=== PATIENT | male | born 1970 | race Caucasian/White ===

== ENCOUNTER 2018-02-05 19:56 | Emergency (ER) | payer MEDICAID, SELFPAY ==
[2018-02-05 19:57] VITALS: BP 159/87; PULSE 82; RESP 20; TEMP 36.1; O2SAT 94; BMI 36.3
[2018-02-05 20:07] VITALS: BP 184/90; PULSE 81; RESP 18; O2SAT 96
[2018-02-05] MEDS: DiphenhydrAMINE 50 MG/ML Syringe IV (20:40)
[2018-02-05] MEDS: Morphine 2 MG/ML Syringe IV (20:41)
[2018-02-05] MEDS: MethylPREDNISolone 125 MG/2 ML Vial IV (20:41)
[2018-02-05] MEDS: 0.9% Normal Saline 1,000 ML 999 ML IV (20:41)
[2018-02-05 21:00] VITALS: BP 151/72; PULSE 95; RESP 16; O2SAT 97
[2018-02-05 22:00] VITALS: BP 161/74; PULSE 84; RESP 17; O2SAT 96
--- NOTE | 2018-02-05 22:12 | ED.DEP ---
ED Disposition - Plan for ED Patient: Chief Complaint: Allergic Reaction Instructions: ED Bite Sting Insect Gen Allergic React Prescriptions: Epinephrine [Epi Pen] 0.3 mg IM X1 #2 syringe Referrals: Andrew Zapata DO [Primary Care Provider] - 3-5 Days
--- NOTE | 2018-02-05 22:39 | ED.VISSUMM ---
- ER Visit Summary Date of Service: 02/05/18 Chief Complaint: [Allergic reaction] History of Present Illness: The patient is a 47 M [who presents the emergency department with an allergic reaction. He was stung by a bee approximately 20 minutes ago on the left hand. 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 His EpiPen was . He feels nauseated and short of breath and his tongue feels swollen. No rash or itching] Physical Examination: [] Pressure elevated WN WD NAD PERRL EOMI MMM NECK supple and nontender, no masses RRR no murmur rub or gallop, no peripheral edema, symmetric radial pulses CTAB no respiratory distress ABDOMEN is soft mild diffuse tenderness normal bowel sounds, no distension, no rebound or guarding SKIN bee sting left hand with mild surrounding erythema Alert and Oriented x3, CN II-XII in tact, no motor or sensory deficits, gait normal No lymphadenopathy Test Results: [] Emergency Department Course and Treatment: [She was given epinephrine Solu-Medrol and Benadryl. His symptoms resolved. He was observed for 2 hours. He was given a prescription for a refill on his EpiPen. He was given precautions for which to return.] Treatment Plan: [] Disposition: [Discharge] Impression: [Anaphylaxis] This note was generated with [employer] dictation software. It may contain incorrect words, spelling, and punctuation that were not noted in review of the chart prior to signing ED Disposition - Plan for ED Patient: Chief Complaint: Allergic Reaction Instructions: ED Bite Sting Insect Gen Allergic React Prescriptions: Epinephrine [Epi Pen] 0.3 mg IM X1 #2 syringe Referrals: Andrew Zapata DO [Primary Care Provider] - 3-5 Days
[2018-02-05 23:00] VITALS: BP 137/78; PULSE 76; RESP 14; O2SAT 95
--- NOTE | 2018-02-06 00:51 | ED.RN ---
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
[2018-02-06 01:44] VITALS: RESP 16
[2018-02-06 02:46] VITALS: RESP 16
[2018-02-06 03:03] VITALS: BP 131/76; PULSE 70; RESP 13; O2SAT 96
== END 2018-02-06 03:07 | disposition home or self-care (01) ==
LOC: ED 20:36
PROVIDERS: Emergency Provider Emergency Medicine; Family Provider Student in an Organized Health Care Education/Training Program; PCP Student in an Organized Health Care Education/Training Program
DX: T63.441A Toxic effect of venom of bees, accidental (unintentional), initial encounter (principal); T78.2XXA Anaphylactic shock, unspecified, initial encounter; Z72.0 Tobacco use
CPT/HCPCS: 96361; 96372; 96374; 96375; 99282; J7030; A4216

== ENCOUNTER 2018-04-26 22:22 | Emergency (ER) | payer MEDICAID, SELFPAY ==
[2018-04-26 22:23] VITALS: BP 158/82; PULSE 83; RESP 18; TEMP 36.9; O2SAT 95; BMI 36.0
[2018-04-27] MEDS: DiphenhydrAMINE 50 MG/ML Syringe 25 MG IV (00:04)
[2018-04-27] MEDS: Ketorolac 30 MG/ML Syringe IV (00:05)
[2018-04-27] MEDS: 0.9% Normal Saline 1,000 ML 1000 ML IV (00:05)
[2018-04-27] MEDS: Metoclopramide 10 MG/2 ML Vial IV (00:06)
--- NOTE | 2018-04-27 00:57 | ED.VISSUMM ---
- ER Visit Summary Date of Service: 04/27/18 Chief Complaint: [Take] History of Present Illness: The patient is a 47 M [presents the emergency department with a headache ?2 days. Patient states that he awoke with a headache 2 days ago. Patient states that he has a history of migraines and this feels similar. He complains of photophobia and nausea with 2 episodes of vomiting. Patient denies any falls or head injuries. He does complain of some pain in his right neck and right shoulder. Patient denies any recent illness or fever. Patient denies carbon monoxide exposures. He gets similar headaches every couple weeks.] Physical Examination: [HEENT-PERRLA, EOMI. Cranial nerves II through XII grossly intact. TMs clear. Mucous membranes moist. No adenopathy. She has mild tenderness over the right cervical paraspinal musculature into the right trapezius. Cardiovascular-regular rate and rhythm without murmur or ectopy Lungs-clear to auscultation, chest wall stable without crepitus or subcu emphysema Abdomen-normoactive bowel sounds, soft, nontender, no rebound or rigidity, no peritoneal signs. Neuro bfxb-qbeezl-mojb and heel ruvalcaba testing within normal limits, negative Romberg, negative pronator, fundi benign Extremities-intact ?4, normal range of motion, normal pulses, atraumatic] Test Results: [None indicated] Emergency Department Course and Treatment: Patient was given a liter normal same fluid bolus. Patient was given Reglan 10 mg IV, Benadryl 25 mg IV, and Toradol 30 mill grams IV. Patient's headache resolved. [] Treatment Plan: [Patient to follow-up with primary care physician in 3-5 days] Disposition: [Discharged home stable condition] Impression: [Migrainous cephalgia-resolved] This note was generated with [employer] dictation software. It may contain incorrect words, spelling, and punctuation that were not noted in review of the chart prior to signing ED Disposition - Plan for ED Patient: Chief Complaint: Headache Referrals: Andrew Zapata DO [Primary Care Provider] -
--- NOTE | 2018-04-27 01:00 | ED.DEP ---
ED Disposition - Plan for ED Patient: Chief Complaint: Headache Instructions: ED Headache Migraine Referrals: Andrew Zapata DO [Primary Care Provider] - 3-5 Days
[2018-04-27 01:16] VITALS: PULSE 80; RESP 18; O2SAT 98
== END 2018-04-27 01:19 | disposition home or self-care (01) ==
PROVIDERS: Emergency Provider Emergency Medicine; Family Provider Student in an Organized Health Care Education/Training Program; PCP Student in an Organized Health Care Education/Training Program
DX: G43.909 Migraine, unspecified, not intractable, without status migrainosus (principal); I10 Essential (primary) hypertension; Z72.0 Tobacco use; Z79.899 Other long term (current) drug therapy
CPT/HCPCS: 96361; 96374; 96375; 99283; J7030; A4216

== ENCOUNTER 2018-11-25 04:46 | Emergency (ER) | payer OTHER, SELFPAY ==
[2018-11-25 04:47] VITALS: BP 178/106; PULSE 106; RESP 18; TEMP 36.8; O2SAT 98; BMI 43.9
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
--- NOTE | 2018-11-25 05:00 | ED.DEP ---
ED Disposition - Plan for ED Patient: Disposition: Home or Assisted Living Instructions: ED Laceration Facial Skin Glue Referrals: Andrew Zapata DO [Primary Care Provider] - As Needed Additional Instructions: Do not remove the glue or the Steri-Strips for 1 week.
== END 2018-11-25 05:11 | disposition home or self-care (01) ==
LOC: ED 05:08
PROVIDERS: Emergency Provider Emergency Medicine; Family Provider Student in an Organized Health Care Education/Training Program; PCP Student in an Organized Health Care Education/Training Program
DX: S01.81XA Laceration without foreign body of other part of head, initial encounter (principal); W50.0XXA Accidental hit or strike by another person, initial encounter; Y93.83 Activity, rough housing and horseplay; Y92.9 Unspecified place or not applicable; Y99.9 Unspecified external cause status; K21.9 Gastro-esophageal reflux disease without esophagitis; R05 Cough; Z79.899 Other long term (current) drug therapy
CPT/HCPCS: 12011; 99282

== ENCOUNTER 2019-01-27 03:38 | Observation (INO) | payer OTHER, SELFPAY ==
[2019-01-27] VITALS (9 sets, daily range): BP systolic 126–179; BP diastolic 72–94; PULSE 68–114; RESP 16–20; TEMP 36.4–37.1; O2SAT 91–98; BMI 36.1; BMI 35.1
--- NOTE | 2019-01-27 03:47 | CT_ITS ---
STUDY: CT SOFT TISSUE NECK WITHOUT CONTRAST REASON FOR EXAM: Male, 48 years old. Sore throat since 7:00 PM last night, elevated WBCs, question abscess of soft palate. RADIATION DOSAGE (If Supplied By Facility): CTDIvol = ( 21.98 ) mGy, DLP = ( 625.77 ) mGycm TECHNIQUE: The patient was scanned in a multi-detector CT scanner. High resolution transaxial imaging was performed without the administration of intravenous contrast material. Sagittal and coronal images were reconstructed. Individualized dose optimization techniques were used for this CT. COMPARISON: None. FINDINGS: Normal bilateral parotid glands. Normal bilateral field inspector spaces. Normal bilateral parapharyngeal spaces. Normal bilateral carotid spaces. Normal bilateral sublingual and submandibular glands and spaces. Normal visualized nasopharynx. Normal retropharyngeal space. Normal perivertebral space. There is low attenuation prominence of the posterior soft palate, uvula, right palatine arch and right greater than left tonsil, the right side contains a small calcification. There is no focal low attenuation in the palatine tonsils to suggest abscess formation on noncontrast imaging. There is no airway narrowing or compromise. The visualized tongue, tongue base and oropharynx are normal. There are minimally enlarged lymph nodes of the neck, with preservation of normal griffin architecture, consistent with a reactive lymph hyperplasia. There is no demonstrated solid or cystic mass lesion. Normal epiglottis, bilateral vallecula and hypopharynx. The pre-epiglottic and paraglottic adipose spaces are normal. Normal visualized bilateral piriform sinuses, aryepiglottic folds, vocal cords, and arytenoid-cricoid articulations. Normal subglottic trachea. Normal bilateral lobes of the thyroid gland. Normal visualized pulmonary apices. Normal visualized paranasal sinuses. The bilateral mastoid air cells are clear. Age-appropriate visualized cervical spine. The mandible , bilateral zygomatic arches and bilateral temporomandibular joints are intact. CT/Soft Tissue Neck without Contr IMPRESSION: Edema and swelling involving the uvula, right palatine arch, right tonsil and posterior soft palate without a defined collection seen on noncontrast imaging. No pocket of air detected. Further detail could be obtained with contrast CT. No airway compromise or epiglottitis. Electronically Signed: Donna Sanchez MD at 4:48 EDT , Service support ,
--- NOTE | 2019-01-27 03:52 | ED.DCSUM_ITS ---
- ER Visit Summary Date of Service: 01/27/19 Chief Complaint: Sore throat History of Present Illness: The patient is a 48 M with sore throat that started earlier today. No fever chills, he does have an increased gag reflex. He has no shortness of breath. Physical Examination: Examination reveals fullness of the right soft palate and peritonsillar space. His airway is intact his voice is unremarkable he has no anterior lymphadenopathy. He has clear lungs. Emergency Department Course and Treatment: Patient is found to have swelling of the soft palate and uvula, there is no obvious abscess. I will call for admission. There is no surgical intervention at this time he is protecting his airway quite well. Clindamycin IV was given. Disposition: Admit stable condition Impression: Peritonsillar infection Soft tissue infection This note was generated with [employer] dictation software. It may contain incorrect words, spelling, and punctuation that were not noted in review of the chart prior to signing ED Disposition - Plan for ED Patient: Referrals: Andrew Zapata DO [Primary Care Provider] -
[2019-01-27] MEDS: Morphine 4 MG/ML Syringe IV (04:00)
[2019-01-27] MEDS: Ondansetron 4 MG/2 ML Vial IV (04:01)
[2019-01-27 04:16] LABS: Absolute Lymphocyte Count 1.21 X10^3/ul (0.83-4.51); Absolute Neutrophil Count 9.7 X10^3/uL (2.0-7.7); Basophil# 0.02 X10^3/uL; Basophil% 0.2 % (0-1); Eosinophil# 0.04 X10^3/uL; Eosinophils% 0.3 % (0-5); Hematocrit 42.8 % (40-54); Hemoglobin 14.5 g/dl (13.0-16.5); Lymphocyte # 1.21 X10^3/ul (4.0); Lymphocyte % 10.2 % (19-41); Mean Corp Hgb Conc 33.9 g/gl (32-36); Mean Corpuscular Hgb 28.5 pg (27.0-32.0); Mean Corpuscular Volume 84.1 fL (80-94); Mean Platelet Vol. 9.3 fl (6.2-12.0); Monocyte# 0.91 X10^3/uL; Monocyte% 7.7 % (0-10); Neutrophil # 9.68 X10^3/uL (2.7-7.7); Neutrophil % 81.5 % (47-70); POSITIVE COUNT NO; POSITIVE DIFFERENTIAL NO; POSITIVE MORPHOLOGY NO; Platelet Count 233 K/mm3 (150-450); RBC Distribution Width CV 13.6 % (11.6-14.6); RBC Distribution Width SD 41.8 fl (35.1-43.9); Red Blood Count 5.09 M/mm3 (4.6-6.2); White Blood Count 11.9 K/mm3 (4.4-11.0)
[2019-01-27 04:27] LABS: ALB/GLOB Ratio 0.8 RATIO (0.9-2.4); AST(SGOT) 27 U/L (15-37); Alanine Aminotransfer ALT/SGPT 66 U/L (16-61); Albumin, Serum 3.6 g/dL (3.2-5.0); Alkaline Phosphatase 131 U/L (45-117); Anion Gap 12 (5-15); BUN 20 mg/dL (7-18); BUN/Creat Ratio 20.5 RATIO (10-20); Calcium,Total 8.9 mg/dL (8.5-10.1); Chloride 106 mmol/L (98-107); Creatinine, Serum 0.98 mg/dL (0.70-1.30); EST Glomerular Filtration Rate 87 mL/min (>60); Est Glom Filt Rate - Afr Amer 106 mL/min (>60); Estimated Creatinine Clearance 83.19 ml/min; Globulin 4.3 g/dL (2.2-4.2); Glucose 114 mg/dL (74-106); Potassium 3.7 mmol/L (3.5-5.1); Protein, Total 7.9 g/dL (6.4-8.2); Sodium Level 142 mmol/L (136-145)
--- NOTE | 2019-01-27 04:57 | PCM.HP.STD ---
Problem List (1) Peritonsilar infection Status: Acute (2) Obesity (BMI 30-39.9) Status: Chronic (3) GERD (gastroesophageal reflux disease) Status: Chronic Qualifiers: Esophagitis presence: esophagitis presence not specified Qualified Code(s): K21.9 - Gastro-esophageal reflux disease without esophagitis (4) Anxiety and depression Status: Chronic History of Present Illness Date of Admission: 01/27/19 Chief Complaint: Sore throat The patient is a 48 y/o M w/ PMHx: GERD, Anxiety and Depression, Obesity, Former Tobacco use who presents to the [facility] ED on 01/27/19 with history of onset oral discomfort, sore throat which is worse with swallowing attempts, edema worsening over the last 36 hours without fever or chills and noted mild voice alteration. He denies any recent ill contacts. He notes thinking that he had strep throat. Work-up in the ED included T 90.7, heart rate 114, BP 179/94, respiratory rate 18, 93% on room air, CBC with WC 11.9, hemoglobin 14.5, platelet 233 with left shift, CMP notable for BUN 20, glucose 114, ALT 66, alk phos 131, CT soft tissue neck with edema and swelling involving the uvula, right pontine arch, right tonsil and posterior soft palate without defined collection, no pocket of air detected, no airway compromise or epiglottitis evident. In the ED patient administered Zofran, morphine and clindamycin. Past Medical History Past Medical History (Chronic Problems): Chronic Problems Obesity (BMI 30-39.9) (Chronic) GERD (gastroesophageal reflux disease) (Chronic) Anxiety and depression (Chronic) Hx of spinal fusion (Chronic) posterior lumbar spine Allergies venom-honey bee [bee venom (honey bee)] Allergy (Verified 04/26/18 22:24) Anaphylaxis INHALED STEROIDS Adverse Reaction (Uncoded 04/26/18 22:24) Other Home Medications: Ambulatory Orders Medication Instructions Recorded Epi Pen (for allergic rxn) 0.3 mg IM X1 #2 syringe 02/05/18 Omeprazole 20 mg PO DAILY 02/05/18 Surgical History: - - Lumbar back surgery, left inguinal hernia repair, right lymph node resection, right lower extremity history of trauma with surgical intervention. Psychiatric History: Anxiety, Depression Lives: Spouse/ Significant Other - Patient was a spouse with 5 children. Smoking Status: Former smoker - Patient quit cigarette tobacco usage approximately 4 to 5 months prior. Tobacco Use: Non-smoker Alcohol: Occasional Drugs: None - *Family History Maternal History Items: Diabetes, Heart Disease, Hypertension Paternal History Items: Cancer, Diabetes, Heart Disease, Hypertension Review of Systems Constitutional: Reports: Anorexia, Malaise, Fatigue. Denies: Chills, Fever, Weight Change HEENT: Reports: Difficulty Swallowing, Sore Throat. Denies: Head Aches, Sinus Congestion, Sinus Drainage Cardiovascular: Denies: Chest Pain, Palpitations Respiratory: Denies: Cough, Shortness of breath at rest, Sputum production Gastrointestinal: Denies: Abdominal Pain, Nausea, Vomiting Genitourinary: Denies: Dysuria Musculoskeletal: Denies: Joint Pain, Joint Tenderness Skin: Denies: Rash, Wounds Neurological: Denies: Numbness, Tingling, Focal weakness Psychiatric: Reports: Anxiety, Depression. Denies: Homicidal Ideations, Suicidal Ideations Hematologic/ Lymphatic: Denies: Easy Bruising, Easy Bleeding VTE Information - Inpt Only VTE Present on Admission: No VTE Mechan Device Prophylaxis: None VTE Pharm Prophylaxis ordered?: No Reason prophylaxis not ordered:: Treatment Not Indicated - Low risk, ambulation. Patient Problems: Active and Suspected Problems Peritonsilar infection (Acute) Subjective: Seated upright in ED bed, fatigued appearance, notes throat sore. Objective: Physical Examination: General: awake, alert, oriented x 3 and cooperative, seated upright in the ED bed in no apparent distress, notes ongoing sore throat. Skin: normal color, turgor, no icterus, cyanosis. HEENT: AT/NC, EOMI, PERRLA, dry MM, notable swelling of the soft palate and uvula, erythema, no exudates noted, airway intact, no carotid bruits or JVD noted. Lungs: CTA bilaterally, moderate effort, mild decrease BL bases, no rales, ronchi or wheezing. Heart: Regular rate and rhythm; no gallop, rub audible. Abdomen: soft, obese, NTTP, ND, normal BS, no HSM. Extremities: no cyanosis, clubbing, or edema. Neurological: patient awake, alert, oriented x 3; cognitive function intact; pupils equally reactive to light and accomodation; cranial nerves II-XII grossly normal, moving all 4 extremities, no focal deficits, strength moderately global decrease secondary to acute presentation. Psychiatric: affect appears fatigued, no acute evidence of depressive or anxiety feelings. - Physical Exam Vital Signs Temp Pulse Resp BP Pulse Ox 98.7 F 114 H 18 179/94 H 93 01/27/19 03:38 01/27/19 03:38 01/27/19 03:38 01/27/19 03:38 01/27/19 03:38 Oxygen Delivery Method Room Air Weight: 223 lb 8.78 oz Body Mass Index (BMI) 36.1 Laboratory Tests Past 24 Hrs 01/27/19 01/27/19 04:00 04:00 WBC 11.9 H RBC 5.09 Hgb 14.5 Hct 42.8 MCV 84.1 MCH 28.5 MCHC 33.9 RDW 13.6 RDW Differential 41.8 Plt Count 233 MPV 9.3 Immature Gran % (Auto) 0.100 Neut % (Auto) 81.5 H Lymph % (Auto) 10.2 L [place] % (Auto) 7.7 Eos % (Auto) 0.3 Baso % (Auto) 0.2 Absolute Neuts (auto) 9.7 H Absolute Lymphs (auto) 1.21 Total Counted Not Reportable Sodium 142 Potassium 3.7 Chloride 106 Carbon Dioxide 24.0 Anion Gap 12 BUN 20 H Creatinine 0.98 Estim Creat Clear Calc 83.19 Est GFR (MDRD) Af Amer 106 Est GFR (MDRD) Non-Af 87 BUN/Creatinine Ratio 20.5 H Glucose 114 H Calcium 8.9 Total Bilirubin 0.60 AST 27 ALT 66 H Alkaline Phosphatase 131 H Total Protein 7.9 Albumin 3.6 Globulin 4.3 H Albumin/Globulin Ratio 0.8 L Assessment/Plan All Active Problems Peritonsilar infection (Acute) The patient is a 48 y/o M w/ PMHx: GERD, Anxiety and Depression, Obesity, Former Tobacco use who presents to the [facility] ED on 01/27/19 with history of onset oral discomfort, sore throat which is worse with swallowing attempts, edema worsening over the last 36 hours without fever or chills. (1) Acute Peritonsillar Infection: Work-up in the ED included T 90.7, heart rate 114, BP 179/94, respiratory rate 18, 93% on room air, CBC with WC 11.9, hemoglobin 14.5, platelet 233 with left shift, CMP notable for BUN 20, glucose 114, ALT 66, alk phos 131, CT soft tissue neck with edema and swelling involving the uvula, right pontine arch, right tonsil and posterior soft palate without defined collection, no pocket of air detected, no airway compromise or epiglottitis evident. Will admit to MedSurg, maintain on IV Unasyn, administered Decadron 4 mg IV x1, pending ENT evaluation, maintain n.p.o. status, continue PPI. (2) Obesity: Weight loss and lifestyle changes encouraged. (3) History of tobacco use: Encouraged continued tobacco cessation. (4) Anxiety and depression: Not on regimen, defer to outpatient. (5) GERD: PPI. (6) DVT prophylaxis: Low risk, ambulation. Code Visit OBSV E&M: [id number] Initial observation care L3
[2019-01-27] MEDS: 0.9% Normal Saline 1,000 ML 125 ML IV ×3 (06:23→23:15)
[2019-01-27] MEDS: 0.9% NaCl Peripheral Flush Adult/Peds IV ×2 (06:25→08:14)
[2019-01-27] MEDS: HYDROcodone Bitartrate/Apap 5/325 Tablet PO (07:07)
--- NOTE | 2019-01-27 07:51 | CON.PCM_ITS ---
Problem List (1) Tonsillitis Status: Acute Reason for Consult Date of Consultation: 01/27/19 History of Present Illness: The patient is a 48 year old M with worsening throat pain over the past few days that became intractable last night. presented to the ED with increasing odynophagia. no dyspnea. CT demonstrated peritonsillar inflammation with no abscess or collection. WBC 11k. Past Medical History Past Medical History (Chronic Problems): Chronic Problems Obesity (BMI 30-39.9) (Chronic) GERD (gastroesophageal reflux disease) (Chronic) Anxiety and depression (Chronic) Hx of spinal fusion (Chronic) posterior lumbar spine Allergies venom-honey bee [bee venom (honey bee)] Allergy (Verified 04/26/18 22:24) Anaphylaxis INHALED STEROIDS Adverse Reaction (Uncoded 04/26/18 22:24) Other Home Medications: Ambulatory Orders Medication Instructions Recorded Epi Pen (for allergic rxn) 0.3 mg IM X1 #2 syringe 02/05/18 Omeprazole 20 mg PO DAILY 02/05/18 Surgical History: - - Lumbar back surgery, left inguinal hernia repair, right lymph node resection, right lower extremity history of trauma with surgical intervention. Psychiatric History: Anxiety, Depression Lives: Spouse/ Significant Other - Patient was a spouse with 5 children. Smoking Status: Former smoker Tobacco Use: Non-smoker Alcohol: Occasional Drugs: None - *Family History Maternal History Items: Diabetes, Heart Disease, Hypertension Paternal History Items: Cancer, Diabetes, Heart Disease, Hypertension Review of Systems Constitutional: Denies: Chills, Fever, Weight Change HEENT: Denies: Head Aches, Sinus Congestion, Sinus Drainage Cardiovascular: Reports: - Respiratory: Reports: - - no stridor, voice normal Patient Problems: Active and Suspected Problems Peritonsilar infection (Acute) Tonsillitis (Acute) - Physical Exam General: Alert, Oriented x3, Cooperative HEENT: TM's Clear Oral: Moist Mucosa, - - tonsillar inflammation. no significant uvular/soft palate edema. Neck: - - scattered reactive lymphadenopathy Vital Signs Temp Pulse Resp BP Pulse Ox 97.6 F L 101 H 20 H 144/76 H 98 01/27/19 06:04 01/27/19 06:04 01/27/19 06:04 01/27/19 06:04 01/27/19 06:04 Oxygen Delivery Method Room Air Weight: 98.6 kg Body Mass Index (BMI) 35.1 Laboratory Tests Past 24 Hrs 01/27/19 01/27/19 04:00 04:00 WBC 11.9 H RBC 5.09 Hgb 14.5 Hct 42.8 MCV 84.1 MCH 28.5 MCHC 33.9 RDW 13.6 RDW Differential 41.8 Plt Count 233 MPV 9.3 Immature Gran % (Auto) 0.100 Neut % (Auto) 81.5 H Lymph % (Auto) 10.2 L [place] % (Auto) 7.7 Eos % (Auto) 0.3 Baso % (Auto) 0.2 Absolute Neuts (auto) 9.7 H Absolute Lymphs (auto) 1.21 Total Counted Not Reportable Sodium 142 Potassium 3.7 Chloride 106 Carbon Dioxide 24.0 Anion Gap 12 BUN 20 H Creatinine 0.98 Estim Creat Clear Calc 83.19 Est GFR (MDRD) Af Amer 106 Est GFR (MDRD) Non-Af 87 BUN/Creatinine Ratio 20.5 H Glucose 114 H Calcium 8.9 Total Bilirubin 0.60 AST 27 ALT 66 H Alkaline Phosphatase 131 H Total Protein 7.9 Albumin 3.6 Globulin 4.3 H Albumin/Globulin Ratio 0.8 L Assessment/Plan All Active Problems Peritonsilar infection (Acute) Tonsillitis (Acute) 48 year old male with tonsillitis -CT negative for abscess or phlegmon -voice normal, tolerating secretions. -already received 4mg IV decadron. agree with clindamycin. -would swab throat for culture -would discharge on orals when symptoms improve. ok for regular diet.
[2019-01-27] MEDS: dexAMETHasone 4 MG/ML Vial IV (08:14)
[2019-01-27] MEDS: Pantoprazole Sodium 20 MG Tablet PO (08:24)
--- NOTE | 2019-01-27 09:35 | PCM.PN.HOSP ---
Patient Problems: Active and Suspected Problems Peritonsilar infection (Acute) Tonsillitis (Acute) Subjective: Patient seen and examined. He was admitted in the early hours of this morning with complaint of a sore throat and found to have tonsillitis. ENT is on board and patient started on IV clindamycin. Patient still complains of a sore throat and has significant pain and discomfort with swallowing. He denies any fever chills, nausea vomiting, palpitations or dizziness. Review of systems otherwise negative. Labs and vitals reviewed. Vitals/I&O's: Vital Signs Temp Pulse Resp BP Pulse Ox 97.8 F 80 18 140/78 H 94 01/27/19 08:17 01/27/19 08:17 01/27/19 08:17 01/27/19 08:17 01/27/19 08:17 Oxygen Delivery Method Room Air Weight: 217 lb 6.012 oz Body Mass Index (BMI) 35.1 General: Alert, Oriented x3, Cooperative, - - mild discomfort due to sore throat HEENT: Atraumatic, PERRLA, EOMI, Normocephalic Oral: Moist Mucosa Neck: Supple, No JVD, Negative Carotid Bruits Lungs: Clear to auscultation, Normal air movement Cardiovascular: Regular rate, Regular Rhythm, Normal S1, Normal S2, No murmurs Abdomen: Bowel Sounds Present, Soft, Non Tender, Non-Distended, No Hepato-splenomegaly Extremities: No clubbing, No cyanosis, No edema, Capillary Refill Less than 3 Seconds Skin: No rashes, No breakdown Musculoskeletal: No Tenderness to Palpation of Joints or Extremities Lymphatic: No Cervical, Supraclavicular, or Inguinal Adenopathy Neurological: Cranial nerves II-XII grossly intact, Neuro grossly intact, Motor Exam 5/5 strength throughout Psych/Mental Status: Normal Affect, Appropriate, Alert and oriented to time, place, person, mood and affect Laboratory Results 01/27/19 04:00: WBC 11.9 H, RBC 5.09, Hgb 14.5, Hct 42.8, MCV 84.1, MCH 28.5, MCHC 33.9, RDW 13.6, RDW Differential 41.8, Plt Count 233, MPV 9.3, Immature Gran % (Auto) 0.100, Neut % (Auto) 81.5 H, Lymph % (Auto) 10.2 L, [place] % (Auto) 7.7, Eos % (Auto) 0.3, Baso % (Auto) 0.2, Absolute Neuts (auto) 9.7 H, Absolute Lymphs (auto) 1.21, Total Counted Not Reportable 01/27/19 04:00: Sodium 142, Potassium 3.7, Chloride 106, Carbon Dioxide 24.0, Anion Gap 12, BUN 20 H, Creatinine 0.98, Estim Creat Clear Calc 83.19, Est GFR (MDRD) Af Amer 106, Est GFR (MDRD) Non-Af 87, BUN/Creatinine Ratio 20.5 H, Glucose 114 H, Calcium 8.9, Total Bilirubin 0.60, AST 27, ALT 66 H, Alkaline Phosphatase 131 H, Total Protein 7.9, Albumin 3.6, Globulin 4.3 H, Albumin/Globulin Ratio 0.8 L Diagnostic Data Soft Tissue Neck CT 01/27/19 03:47 IMPRESSION: Edema and swelling involving the uvula, right palatine arch, right tonsil and posterior soft palate without a defined collection seen on noncontrast imaging. No pocket of air detected. Further detail could be obtained with contrast CT. No airway compromise or epiglottitis. Electronically Signed: Donna Sanchez MD at 4:48 EDT , Service support , Current Medications Acetaminophen (Tylenol) 1,000 mg PO Q8H PRN PRN PRN Reason: PAIN Hydrocodone Bitart/Acetaminophen ([place] 5mg-325mg) 1 - 2 tablet PO Q6H PRN PRN PRN Reason: MOD-SEVERE PAIN (4-10/10) Last Admin: 01/27/19 07:07 Dose: 1 tablet Al Hydroxide/Mg Hydroxide (Mylanta Ii) 15 - 30 ml PO Q4H PRN PRN PRN Reason: INDIGESTION Albuterol Sulfate (Ventolin Aerosols) 2.5 mg INHALATION Q2H PRN PRN PRN Reason: dyspnea, wheezing Dextrose (D50w Syringe) 0 gm IV X1 PRN; Protocol PRN Reason: Hypoglycemia Glucagon () 1 mg IM .X1 PRN PRN Reason: Hypoglycemia Hydralazine HCl (Apresoline Iv) 10 mg IV Q4H PRN PRN PRN Reason: SBP > 160 Sodium Chloride () 1,000 mls @ 125 mls/hr IV .Q8H [facility] Last Admin: 01/27/19 06:23 Dose: 125 mls/hr Ampicillin Sodium/Sulbactam (Sodium 3 gm/ Sodium Chloride) 112 mls @ 150 mls/hr IV Q6 [facility] Last Admin: 01/27/19 07:01 Dose: 150 mls/hr Sodium Chloride () 250 mls @ 15 mls/hr IV .[id number] PRN PRN Reason: SALINE FLUSH Morphine Sulfate () 1 - 2 mg IV Q4H PRN PRN PRN Reason: PAIN Ondansetron HCl (Zofran) 4 mg IV Q8H PRN PRN PRN Reason: NAUSEA/VOMITING Pantoprazole Sodium (Protonix) 20 mg PO DAILY [facility] Last Admin: 01/27/19 08:24 Dose: 20 mg Sodium Chloride () 5 - 15 ml IV UD PRN PRN Reason: SALINE FLUSH Last Admin: 01/27/19 08:14 Dose: 10 ml Medical Necessity - Tobacco Use Smoking Status: Former smoker Tobacco Use: Non-smoker Assessment/Plan All Active Problems Peritonsilar infection (Acute) Tonsillitis (Acute) 1. Acute tonsillitis Still complains of sore throat and difficulty with swallowing. Has no fever. has mild leucotysis with H CT soft tissue neck showed edema and swelling involving the uvula, right pontine arch and right tonsil as well as posterior soft palate without defined collection and no pocket of air detected. Continue IV Unasyn. Continue to keep n.p.o. for now. As patient is unable to tolerate oral intake very well, will continue IV antibiotics. ENT on board. 2. Obesity: BMI is approximately 35. Encourage weight loss and lifestyle changes. 3. History of nicotine dependence: Currently does not smoke. 4. Anxiety and depression: to follow up with PCP for initiation of meds as needed. 5. GERD: on PPI 6. DVT prophylaxis: encourage ambulation. Low risk. Code Visit OBSV E&M: 93490 Subsequent observation care L2
--- NOTE | 2019-01-27 09:42 | PN_ITS ---
Patient Problems: Active and Suspected Problems Peritonsilar infection (Acute) Tonsillitis (Acute) Subjective: Patient seen and examined. He was admitted in the early hours of this morning with complaint of a sore throat and found to have tonsillitis. ENT is on board and patient started on IV clindamycin. Patient still complains of a sore throat and has significant pain and discomfort with swallowing. He denies any fever chills, nausea vomiting, palpitations or dizziness. Review of systems otherwise negative. Labs and vitals reviewed. Vitals/I&O's: Vital Signs Temp Pulse Resp BP Pulse Ox 97.8 F 80 18 140/78 H 94 01/27/19 08:17 01/27/19 08:17 01/27/19 08:17 01/27/19 08:17 01/27/19 08:17 Oxygen Delivery Method Room Air Weight: 217 lb 6.012 oz Body Mass Index (BMI) 35.1 General: Alert, Oriented x3, Cooperative, - - mild discomfort due to sore throat HEENT: Atraumatic, PERRLA, EOMI, Normocephalic Oral: Moist Mucosa Neck: Supple, No JVD, Negative Carotid Bruits Lungs: Clear to auscultation, Normal air movement Cardiovascular: Regular rate, Regular Rhythm, Normal S1, Normal S2, No murmurs Abdomen: Bowel Sounds Present, Soft, Non Tender, Non-Distended, No Hepato- splenomegaly Extremities: No clubbing, No cyanosis, No edema, Capillary Refill Less than 3 Seconds Skin: No rashes, No breakdown Musculoskeletal: No Tenderness to Palpation of Joints or Extremities Lymphatic: No Cervical, Supraclavicular, or Inguinal Adenopathy Neurological: Cranial nerves II-XII grossly intact, Neuro grossly intact, Motor Exam 5/5 strength throughout Psych/Mental Status: Normal Affect, Appropriate, Alert and oriented to time, place, person, mood and affect Laboratory Results 01/27/19 04:00: WBC 11.9 H, RBC 5.09, Hgb 14.5, Hct 42.8, MCV 84.1, MCH 28.5, MCHC 33.9, RDW 13.6, RDW Differential 41.8, Plt Count 233, MPV 9.3, Immature Gran % (Auto) 0.100, Neut % (Auto) 81.5 H, Lymph % (Auto) 10.2 L, [place] % (Auto) 7.7, Eos % (Auto) 0.3, Baso % (Auto) 0.2, Absolute Neuts (auto) 9.7 H, Absolute Lymphs (auto) 1.21, Total Counted Not Reportable 01/27/19 04:00: Sodium 142, Potassium 3.7, Chloride 106, Carbon Dioxide 24.0, Anion Gap 12, BUN 20 H, Creatinine 0.98, Estim Creat Clear Calc 83.19, Est GFR (MDRD) Af Amer 106, Est GFR (MDRD) Non-Af 87, BUN/Creatinine Ratio 20.5 H, Glucose 114 H, Calcium 8.9, Total Bilirubin 0.60, AST 27, ALT 66 H, Alkaline Phosphatase 131 H, Total Protein 7.9, Albumin 3.6, Globulin 4.3 H, Albumin/Globulin Ratio 0.8 L Diagnostic Data Soft Tissue Neck CT 01/27/19 03:47 IMPRESSION: Edema and swelling involving the uvula, right palatine arch, right tonsil and posterior soft palate without a defined collection seen on noncontrast imaging. No pocket of air detected. Further detail could be obtained with contrast CT. No airway compromise or epiglottitis. Electronically Signed: Donna Sanchez MD at 4:48 EDT , Service support , Current Medications Acetaminophen (Tylenol) 1,000 mg PO Q8H PRN PRN PRN Reason: PAIN Hydrocodone Bitart/Acetaminophen ([place] 5mg-325mg) 1 - 2 tablet PO Q6H PRN PRN PRN Reason: MOD-SEVERE PAIN (4-10/10) Last Admin: 01/27/19 07:07 Dose: 1 tablet Al Hydroxide/Mg Hydroxide (Mylanta Ii) 15 - 30 ml PO Q4H PRN PRN PRN Reason: INDIGESTION Albuterol Sulfate (Ventolin Aerosols) 2.5 mg INHALATION Q2H PRN PRN PRN Reason: dyspnea, wheezing Dextrose (D50w Syringe) 0 gm IV X1 PRN; Protocol PRN Reason: Hypoglycemia Glucagon () 1 mg IM .X1 PRN PRN Reason: Hypoglycemia Hydralazine HCl (Apresoline Iv) 10 mg IV Q4H PRN PRN PRN Reason: SBP > 160 Sodium Chloride () 1,000 mls @ 125 mls/hr IV .Q8H [facility] Last Admin: 01/27/19 06:23 Dose: 125 mls/hr Ampicillin Sodium/Sulbactam (Sodium 3 gm/ Sodium Chloride) 112 mls @ 150 mls/hr IV Q6 [facility] Last Admin: 01/27/19 07:01 Dose: 150 mls/hr Sodium Chloride () 250 mls @ 15 mls/hr IV .[id number] PRN PRN Reason: SALINE FLUSH Morphine Sulfate () 1 - 2 mg IV Q4H PRN PRN PRN Reason: PAIN Ondansetron HCl (Zofran) 4 mg IV Q8H PRN PRN PRN Reason: NAUSEA/VOMITING Pantoprazole Sodium (Protonix) 20 mg PO DAILY [facility] Last Admin: 01/27/19 08:24 Dose: 20 mg Sodium Chloride () 5 - 15 ml IV UD PRN PRN Reason: SALINE FLUSH Last Admin: 01/27/19 08:14 Dose: 10 ml Medical Necessity - Tobacco Use Smoking Status: Former smoker Tobacco Use: Non-smoker Assessment/Plan All Active Problems Peritonsilar infection (Acute) Tonsillitis (Acute) 1. Acute tonsillitis * Still complains of sore throat and difficulty with swallowing. * Has no fever. has mild leucotysis with H * CT soft tissue neck showed edema and swelling involving the uvula, right pontine arch and right tonsil as well as posterior soft palate without defined collection and no pocket of air detected. * Continue IV Unasyn. Continue to keep n.p.o. for now. * As patient is unable to tolerate oral intake very well, will continue IV antibiotics. * ENT on board. 2. Obesity: BMI is approximately 35. Encourage weight loss and lifestyle changes. 3. History of nicotine dependence: Currently does not smoke. 4. Anxiety and depression: to follow up with PCP for initiation of meds as needed. 5. GERD: on PPI 6. DVT prophylaxis: encourage ambulation. Low risk. Code Visit OBSV E&M: 38706 Subsequent observation care L2
[2019-01-27] MEDS: Acetaminophen 500 MG Tablet 1000 MG PO ×2 (13:23→21:56)
[2019-01-28 03:04] VITALS: RESP 18
[2019-01-28 06:06] VITALS: BP 124/66; PULSE 66; RESP 14; TEMP 36.4; O2SAT 96
[2019-01-28 06:06] LABS: Absolute Neutrophil Count 9.6 X10^3/uL (2.0-7.7); Eosinophil# 0.01 X10^3/uL; Eosinophils% 0.1 % (0-5); Hematocrit 39.4 % (40-54); Hemoglobin 12.8 g/dl (13.0-16.5); Mean Corp Hgb Conc 32.5 g/gl (32-36); Mean Corpuscular Hgb 27.7 pg (27.0-32.0); Mean Corpuscular Volume 85.3 fL (80-94); Mean Platelet Vol. 9.6 fl (6.2-12.0); Monocyte# 0.76 X10^3/uL; Monocyte% 6.7 % (0-10); Neutrophil # 9.61 X10^3/uL (2.7-7.7); Platelet Count 252 K/mm3 (150-450); RBC Distribution Width CV 13.8 % (11.6-14.6); RBC Distribution Width SD 42.3 fl (35.1-43.9); Red Blood Count 4.62 M/mm3 (4.6-6.2); White Blood Count 11.3 K/mm3 (4.4-11.0)
[2019-01-28] MEDS: Acetaminophen 500 MG Tablet 1000 MG PO (06:09)
[2019-01-28 06:11] LABS: POSITIVE COUNT NO; POSITIVE DIFFERENTIAL NO; POSITIVE MORPHOLOGY NO
[2019-01-28 06:28] LABS: Anion Gap 8 (5-15); BUN 16 mg/dL (7-18); BUN/Creat Ratio 18.8 RATIO (10-20); Calcium,Total 8.6 mg/dL (8.5-10.1); Chloride 109 mmol/L (98-107); Creatinine, Serum 0.85 mg/dL (0.70-1.30); EST Glomerular Filtration Rate 102 mL/min (>60); Est Glom Filt Rate - Afr Amer 123 mL/min (>60); Estimated Creatinine Clearance 95.91 ml/min; Glucose 156 mg/dL (74-106); Sodium Level 143 mmol/L (136-145)
[2019-01-28] MEDS: Pantoprazole Sodium 20 MG Tablet PO (08:28)
--- NOTE | 2019-01-28 09:25 | DCINST_ITS ---
- Discharge Diagnoses Current Active Problems: Current Active and Chronic Problems Peritonsilar infection (Acute) Obesity (BMI 30-39.9) (Chronic) GERD (gastroesophageal reflux disease) (Chronic) Anxiety and depression (Chronic) Tonsillitis (Acute) You will use the following diet at home:: No restrictions Your food should be the consistency of: Regular Your liquids should be the consistency of: Regular/Thin Discharge Activity: Return to Normal Activity Weight Bearing Status: Weight bearing as tolerated Call your doctor if you observe: Fever of 101 or Higher, Shortness of breath, - - shortness of breath Instructions: ED Tonsillitis Allergies/Adverse Reactions: Allergies venom-honey bee [bee venom (honey bee)] Allergy (Verified 04/26/18 22:24) Anaphylaxis INHALED STEROIDS Adverse Reaction (Uncoded 04/26/18 22:24) Other Medications to take at Discharge Epi Pen (for allergic rxn) 0.3 mg IM X1 #2 syringe 02/05/18 Omeprazole 20 mg PO DAILY 02/05/18 Acetaminophen [Tylenol] 650 mg PO Q6H PRN PRN #20 tablet 01/28/19 Amox/Clavulanate Tablet [Augmentin Tablet] 875 mg PO Q12H 10 Days #20 tablet 01/28/19 predniSONE tablet 40 mg PO DAILY 5 Days #10 tablet 01/28/19 The following prescriptions were given: Acetaminophen [Tylenol] 650 mg PO Q6H PRN PRN #20 tablet PRN Reason: Pain Amox/Clavulanate Tablet [Augmentin Tablet] 875 mg PO Q12H 10 Days #20 tablet predniSONE tablet 40 mg PO DAILY 5 Days #10 tablet Primary Care Physician: Andrew Zapata DO [Primary Care Provider] - Please follow up with your Primary Care Physician in: one week Test Results: Test results from this visit will be discussed in further detail at your follow- up appointment, if applicable. Please Follow Up With: James Perez MD When: one week Proposed Discharge Date: 01/28/19
--- NOTE | 2019-01-28 09:25 | DS.PCM_ITS ---
Discharge Date and Diagnosis - Problem List Patient Problems: Active and Suspected Problems Peritonsilar infection (Acute) Tonsillitis (Acute) Date of Admission: 01/27/19 Date of Discharge: 01/28/19 - Primary Discharge Diagnosis Active and Suspected Problems Peritonsilar infection (Acute) Tonsillitis (Acute) - Secondary Discharge Diagnosis Chronic Problems Obesity (BMI 30-39.9) (Chronic) GERD (gastroesophageal reflux disease) (Chronic) Anxiety and depression (Chronic) Hx of spinal fusion (Chronic) posterior lumbar spine Hospital Course and Treatment Imaging Results: Diagnostic Data Soft Tissue Neck CT 01/27/19 03:47 IMPRESSION: Edema and swelling involving the uvula, right palatine arch, right tonsil and posterior soft palate without a defined collection seen on noncontrast imaging. No pocket of air detected. Further detail could be obtained with contrast CT. No airway compromise or epiglottitis. Electronically Signed: Donna Sanchez MD at 4:48 EDT , Service support , ENT- Dr Perez Operations: None Procedures: None Summary of Care Provided: The patient is a 48 year old M with no significant past medical history was admitted to the ED on 01/27/2019 with a complaint of a sore throat. He had pain with swallowing. He had no assisted fever or chills. White cell count was mildly elevated at 11.9. CT of the soft tissue neck showed edema and swelling involving the uvula, right pontine arch, right tonsil and posterior soft palate without defined collection and no airway compromise. Was admitted and managed for tonsillitis. He was started on IV clindamycin. ENT was consulted. He was also put on IV Decadron. He tolerated the symptoms and patient improved significantly. He was discharged with a prescription for p.o. Augmentin for 10 days. He is follow-up with his primary care doctor and ENT doctor. He was also given a prescription for p.o. prednisone for 5 days. Patient seen and examined prior to discharge. He had no complaints and felt much better. Review of systems otherwise negative. Labs and vitals reviewed. Home medication reviewed and reconciled. o/e: Vital Signs Height 5 ft 6 in Weight: 217 lb 6.012 oz Weight in Pounds 217.4 lbs Pulse Ox 96 Temperature 98.0 F Pulse Rate 77 Respiratory Rate 18 Blood Pressure 139/75 Blood Pressure Position Semi-Fowlers [] General: Alert, Oriented x3, Cooperative HEENT: Atraumatic, PERRLA, EOMI, Normocephalic Oral: Moist Mucosa Neck: Supple, No JVD, Negative Carotid Bruits Lungs: Clear to auscultation, Normal air movement Cardiovascular: Regular rate, Regular Rhythm, Normal S1, Normal S2, No murmurs Abdomen: Bowel Sounds Present, Soft, Non Tender, Non-Distended, No Hepato- splenomegaly Extremities: No clubbing, No cyanosis, No edema, Capillary Refill Less than 3 Seconds Skin: No rashes, No breakdown Musculoskeletal: No Tenderness to Palpation of Joints or Extremities Lymphatic: No Cervical, Supraclavicular, or Inguinal Adenopathy Neurological: Cranial nerves II-XII grossly intact, Neuro grossly intact, Motor Exam 5/5 strength throughout Psych/Mental Status: Normal Affect, Appropriate, Alert and oriented to time, place, person, mood and affect Plan as above. Patient Problems: Active and Suspected Problems Peritonsilar infection (Acute) Tonsillitis (Acute) - Physical Exam Vital Signs Temp Pulse Resp BP Pulse Ox 97.6 F L 66 14 124/66 H 96 01/28/19 06:06 01/28/19 06:06 01/28/19 06:06 01/28/19 06:06 01/28/19 06:06 Oxygen Delivery Method Room Air Weight: 217 lb 6.012 oz Body Mass Index (BMI) 35.1 Intake and Output for Last 24 Hours 01/26/19 01/27/19 01/28/19 23:59 23:59 23:59 Intake Total 3496 / 3496 762 / 762 Balance 3496 / 3496 762 / 762 Laboratory Tests Past 24 Hrs 01/28/19 01/28/19 05:26 05:26 WBC 11.3 H RBC 4.62 Hgb 12.8 L Hct 39.4 L MCV 85.3 MCH 27.7 MCHC 32.5 RDW 13.8 RDW Differential 42.3 Plt Count 252 MPV 9.6 Immature Gran % (Auto) 0.200 Neut % (Auto) 85.0 H Lymph % (Auto) 8.0 L [place] % (Auto) 6.7 Eos % (Auto) 0.1 Baso % (Auto) 0.0 Absolute Neuts (auto) 9.6 H Absolute Lymphs (auto) 0.90 Total Counted Not Reportable Sodium 143 Potassium 4.0 Chloride 109 H Carbon Dioxide 26.0 Anion Gap 8 BUN 16 Creatinine 0.85 Estim Creat Clear Calc 95.91 Est GFR (MDRD) Af Amer 123 Est GFR (MDRD) Non-Af 102 BUN/Creatinine Ratio 18.8 Glucose 156 H Calcium 8.6 Discharge Diet: No Restrictions Discharge Activity: Return to Normal Activity Weight Bearing Status: Weight bearing as tolerated Call your doctor if you observe: Fever of 101 or Higher, Shortness of breath, - - shortness of breath Home Medications: Medications to take at Discharge Epi Pen (for allergic rxn) 0.3 mg IM X1 #2 syringe 02/05/18 Omeprazole 20 mg PO DAILY 02/05/18 Acetaminophen [Tylenol] 650 mg PO Q6H PRN PRN #20 tablet 01/28/19 Amox/Clavulanate Tablet [Augmentin Tablet] 875 mg PO Q12H 10 Days #20 tablet 01/28/19 predniSONE tablet 40 mg PO DAILY 5 Days #10 tablet 01/28/19 Following Prescrptions Were Given to Patient: Acetaminophen [Tylenol] 650 mg PO Q6H PRN PRN #20 tablet PRN Reason: Pain Amox/Clavulanate Tablet [Augmentin Tablet] 875 mg PO Q12H 10 Days #20 tablet predniSONE tablet 40 mg PO DAILY 5 Days #10 tablet Primary Care Physician: Andrew Zapata DO [Primary Care Provider] - Please follow up with your Primary Care Physician in: one week Please Follow Up With: James Perez MD When: one week Patient Instructions: ED Tonsillitis Disposition: Home Minutes spent on discharge:: 35 Patient Condition:: Stable Medical Necessity - Tobacco Use Smoking Status: Former smoker Tobacco Use: Non-smoker Meaningful Use Info Meaningful Use Diagnoses (Choose all that apply): None applicable Code Visit Inpatient E&M: 98732 Disch Hosp
[2019-01-28 11:44] VITALS: BP 139/75; PULSE 77; RESP 18; TEMP 36.7; O2SAT 96
== END 2019-01-28 13:40 | disposition home or self-care (01) ==
LOC: ED 05:04 → MS3 05:20
PROVIDERS: Admitting Provider Family Medicine; Emergency Provider Emergency Medicine; Family Provider Student in an Organized Health Care Education/Training Program; PCP Student in an Organized Health Care Education/Training Program; Referring Provider Family Medicine; Visit Provider Student in an Organized Health Care Education/Training Program
DX: J03.90 Acute tonsillitis, unspecified (principal); E66.9 Obesity, unspecified; Z68.35 Body mass index [BMI] 35.0-35.9, adult; Z71.3 Dietary counseling and surveillance; K21.9 Gastro-esophageal reflux disease without esophagitis; Z79.899 Other long term (current) drug therapy; Z87.891 Personal history of nicotine dependence; Z98.1 Arthrodesis status; F41.9 Anxiety disorder, unspecified; F32.9 Major depressive disorder, single episode, unspecified
CPT/HCPCS: 36415; 70490; 80048; 80053; 85025; 96361; 96365; 96366; 96367; 96375; 99218; 99284; 99406; J7030; J7050; A4216; G0378; J0295; J2405

== ENCOUNTER 2019-10-09 12:39 | Emergency (ER) | payer OTHER, SELFPAY ==
[2019-01-27 05:46] VITALS: BMI 35.1
[2019-10-09 12:40] VITALS: BP 156/100; PULSE 77; RESP 18; TEMP 36.6; O2SAT 98; BMI 35.6
--- NOTE | 2019-10-09 12:46 | VDLE_ITS ---
Reason For Study: Pain RIGHT GSV is normal. CFV is compressible, spontaneous, phasic, competent and demonstrates normal augmentation. FV is compressible, spontaneous, phasic, competent and demonstrates normal augmentation. POP V is compressible, spontaneous, phasic, competent and demonstrates normal augmentation. T/P Trunk is compressible. PTV is compressible. RT PerV is compressible. Procedure Exam performed portable in ED. A preliminary report was called and/or faxed to [facility]. Interpretation Summary Deep veins of the right lower extremity are patent and compressible segmentally. There is no evidence of right lower extremity deep vein thrombosis. Valvular competence appears intact within the proximal deep venous system on the right . The right great saphenous vein appears patent and compressible segmentally. Ordering Physician: Aram Turpin Referring Physician: Andrew Paiz Performed By: Ele Cota RVT
--- NOTE | 2019-10-09 12:56 | ED.DCSUM_ITS ---
History of Present Illness Chief Complaint: Lower Extremity Injury Informant: Patient Onset: Days Context: Gradual Onset Timing: Continuous Current Severity: Moderate Maximum Severity: Moderate Narrative: The patient is a 49-year-old male medical history significant for prior DVT after orthopedic surgery in his right thigh presents to the emergency department with right calf pain. Patient states for the past few days, he had tightness in his calf. He states is worse when he tries to bear weight. He cannot recall any injury. He denies any fevers or chills. He said no chest pain or shortness of breath. The pain does not radiate down the leg or up the leg. He states is only in the calf. He did see his primary care physician who try to arrange outpatient ultrasound, but there was no appointments available today so he presented here. He was treated with anticoagulants for 3 months after his initial DVT. Prior similar symptoms: No Recent Illness/Hospitalization: No Past Medical History - Allergies and Home Meds Allergies/Adverse Reactions: Allergies venom-honey bee [bee venom (honey bee)] Allergy (Verified 10/09/19 12:41) Anaphylaxis INHALED STEROIDS Adverse Reaction (Uncoded 10/09/19 12:41) Other Primary Care Physician: Andrew Zapata DO [Primary Care Provider] - Prior records reviewed: Yes Past Medical History: - - Prior DVT Surgical History: - - Lumbar back surgery, left inguinal hernia repair, right lymph node resection, right lower extremity history of trauma with surgical intervention. Smoking Status: Former smoker - Family History Maternal Family History: Reports: Diabetes, Heart Disease, Hypertension Paternal Family History: Reports: Cancer, Diabetes, Heart Disease, Hypertension Review of Systems General: Denies: Chills, Fever, Sweats Eyes: Denies: Visual changes - bilaterally, Diplopia ENT: Denies: Rhinorrhea, Sore throat Cardiovascular: Denies: Chest pain, Palpitations Respiratory: Denies: Dyspnea, Cough, Dyspnea on exertion Gastrointestinal: Denies: Abdominal pain, Nausea, Vomiting, Diarrhea, Melena, He matochezia Genitourinary: Denies: Dysuria, Hematuria, Frequency Musculoskeletal: Denies: Back pain, Extremity Pain Skin: Denies: Rash, Wounds Neurological: Denies: Headache, Weakness, Numbness Physical Exam Vital Signs/Narrative: Vital Signs Temp Pulse Resp BP Pulse Ox 10/09/19 12:40 98 F 77 18 156/100 H 98 Inital Vital Signs reviewed: Yes General: Well nourished, Well developed, No Acute Distress Head: Normocephalic, Atraumatic Eyes: Perrl, EOMI ENT: Moist mucous membranes, No rhinorrhea Neck: Supple, Nontender Cardiovascular: Regular rate, Regular rhythm, No murmurs Respiratory: No distress, CTA bilaterally, Chest nontender Abdomen: Soft, Nontender, Nondistended, Normal bowel sounds Back: Nontender, Normal Inspection Extremities: No edema, Tenderness, Calf Tenderness Skin: Normal color, No rash Neurological: Alert, Oriented x3, Cranial nerves II-XII grossly intact, Normal Strength, Normal Sensation Psychological: Normal affect, Normal Mood Diagnostic/Tx/Re-eval - Medical Decision Making The patient presents with right calf pain. His pulses are normal. His compartments are soft. There is no erythema or edema. He does have a history of a DVT. My suspicion is that this is likely muscular, based on the patient's history ultrasound was obtained. There is no evidence of acute DVT. At this point, I am going to treat the patient symptomatically with anti-inflammatories and antispasmodics. He was counseled on gentle stretching exercises. He was also counseled on concerning symptoms and reasons to return. Impression 1. Right calf strain ED Disposition - Plan for ED Patient: Instructions: Muscle Spasm Prescriptions: cycloBENZAPRine HCl [Flexeril] 10 mg PO TID PRN #20 tab PRN Reason: Muscle Spasm Prescription Printed Naproxen [Naprosyn] 500 mg PO BID PRN #20 tab Prescription Printed Referrals: Andrew Zapata DO [Primary Care Provider] -
[2019-10-09 14:15] VITALS: BP 121/68; PULSE 59; RESP 16; O2SAT 97
== END 2019-10-09 14:16 | disposition home or self-care (01) ==
LOC: ED 13:31
PROVIDERS: Emergency Provider Emergency Medicine; PCP Student in an Organized Health Care Education/Training Program
DX: S86.111A Strain of other muscle(s) and tendon(s) of posterior muscle group at lower leg level, right leg, initial encounter (principal); X58.XXXA Exposure to other specified factors, initial encounter; Y93.9 Activity, unspecified; Y92.9 Unspecified place or not applicable; Y99.9 Unspecified external cause status; Z86.718 Personal history of other venous thrombosis and embolism; Z87.891 Personal history of nicotine dependence
CPT/HCPCS: 93971; 99282

== ENCOUNTER 2022-02-01 01:19 | Emergency (ER) | payer OTHER, SELFPAY ==
[2022-02-01 01:20] VITALS: BP 165/87; PULSE 73; RESP 18; TEMP 36.6; O2SAT 99; BMI 31.9
--- NOTE | 2022-02-01 01:33 | EDS_ITS ---
HPI History of Present Illness Chief Complaint: Abd Pain Informant: patient Narrative Narrative: Patient presents with abdominal pain that started about 4-1/2 hours ago. 1 hour prior to that he had eaten a grilled cheese sandwich. Pain is stayed on the right side mostly upper. He states he has had diverticulitis before but does not remember what that was like. Only abdominal surgery was an inguinal hernia years ago. Still has appendix and gallbladder. He did have vomiting of a large amount of food. No blood was noted. No diarrhea. No fevers or chills. No chest pain or trouble breathing. Nothing makes the pain better or worse. [facility] Medical History Diverticular disease of colon Vitamin D deficiency Home Medications omeprazole 20 mg PO DAILY 02/05/18 [History Last Taken 01/26/19 08:00 20 mg] ondansetron 4 mg PO Q8H PRN #10 tab 02/01/22 [Rx Last Taken Unknown] oxycodone-acetaminophen [Percocet] 1 tab PO Q6H PRN 3 Days #10 tab 02/01/22 [Rx Last Taken Unknown] Allergy/AdvReac Type Severity Reaction Status Date / Time venom-honey bee Allergy Anaphylaxis Verified 02/01/22 01:24 [bee venom (honey bee)] INHALED STEROIDS AdvReac Other Uncoded 02/01/22 01:24 Social History Smoking Status: Current some day smoker tobacco type: cigars ROS ROS ED Constitutional Constitutional ED: Denies chills or fever(s) ENT ENT ED: Denies rhinorrhea or sore throat Cardiovascular Cardiovascular: Denies chest pain or palpitations Respiratory/Chest Respiratory/Chest: Denies cough or dyspnea Gastrointestinal Gastrointestinal: Reports abdominal pain, nausea and vomiting; Denies diarrhea or melena Genitourinary Genitourinary ED: Denies dysuria Musculoskeletal Musculoskeletal: Denies back pain Integumentary Denies rash Neurologic Neurologic: Denies paresthesias or weakness Endocrine Endocrinology: Denies polydipsia or polyuria Allergic/Immunologic Allergic/Immunologic ED: Denies urticaria EXAM Physical Exam Const Vital Signs: 02/01/22 01:20 02/01/22 04:06 Temperature 97.9 F Temperature Source Temporal Pulse Rate 73 67 Respiratory Rate 18 18 Blood Pressure 165/87 H 140/75 H Blood Pressure Mean 113 96 Pulse Ox 99 96 Oxygen Delivery Method Room Air Room Air Positive well nourished and well developed General Appearance ED: well developed and NAD Eyes General Eye ED: Negative for pale conjunctiva or scleral icterus Neck no JVD Chest Wall inspection of chest normal Resp normal respiratory effort and clear to auscultation bilaterally Effort and Inspection: Negative for pain with movement Auscultation: Negative for rales, rhonchi or wheezes Cardio regular rate and regular rhythm GI normal to inspection, nondistended, normoactive bowel sounds GI Narrative: Patient does have tenderness mostly at the right upper quadrant. He has a very slight Sosa sign. No tenderness at all along the left side of the abdomen. Minimal tenderness pressing on the right lower quadrant but a lot of that refers to the right upper quadrant. No CVA tenderness. Palpation: soft Back/Spine no CVA tenderness Extremity normal to inspection General Extremety ED: Negative for edema or tenderness General Extremity: Negative for edema Neuro Sensorium / Orientation: alert Psych mental status grossly normal Skin no rashes or lesions noted MDM MDM MDM Narrative Medical decision making narrative: Since blood work is overall unremarkable. CBC is normal. Electrolytes show no acute process. Glucose is minimally elevated at 116. Liver function test do not show any significant elevation. L ipase is normal. CT scan was done. His clinical picture is most consistent with biliary colic but I do not have ultrasound available at this time. CT scan showed some stranding by L5-S1 but he has no symptoms at that area. He does have prior surgery. I do not think this is contributing to his issue. Gallbladder does show several stones. No convincing evidence of acute cholecystitis. However, he does appear to have a stone that is at the very base/neck of the gallbladder. This may be causing symptoms and decreased drainage of the gallbladder. I rechecked the patient. He is still having pain in that area. He still has tenderness in that area. I will try some more pain meds. If we can get him comfortable, I think we may be able to get him home for close follow-up. However, if I cannot get his pain to go away he may need to come in and even have surgical intervention. Patient is rechecked again at 5:15. He is feeling much better now. When I press firmly he has a small amount of tenderness but states it is improved now. I will let him rest a little bit longer. If we can keep the pain away I think follow-up is appropriate. If it starting to come back again I will contact surgery or add ultrasound in the morning when they get here. Patient is rechecked at 06: 15. He was sound asleep. We wake him up. His pain is gone. He states he feels good now. Even with examination he is not tender at all. I think we can get him home. I told him he can take Motrin or Aleve. I will write for just a few pain pills and medicine for nausea. We discussed foods to avoid. I also discussed that it may be possible that this returns either sooner or later. There is a good chance he and his gallbladder will go different ways in the future. I will give him surgical follow-up numbers. Lab Data Attestation: I reviewed the patient's lab results. Labs: Laboratory Results - last 24 hr 02/01/22 02/01/22 01:25 01:25 WBC 9.4 RBC 5.07 Hgb 13.4 Hct 42.1 MCV 83.0 MCH 26.4 L MCHC 31.8 L RDW Std Deviation 42.5 RDW Coeff of Chloe 14.0 Plt Count 359 MPV 9.2 Immature Gran % (Auto) 0.200 Neut % (Auto) 69.9 Lymph % (Auto) 20.0 Morehouse % (Auto) 7.8 Eos % (Auto) 1.8 Baso % (Auto) 0.3 Absolute Neuts (auto) 6.6 Absolute Lymphs (auto) 1.89 Nucleated RBC % 0 Sodium 141 Potassium 3.9 Chloride 109 H Carbon Dioxide 28.0 Anion Gap 4 L BUN 17 Creatinine 0.93 Estim Creat Clear Calc 84.80 Est GFR (MDRD) Af Amer 110 Est GFR (MDRD) Non-Af 91 BUN/Creatinine Ratio 18.2 Glucose 116 H Calcium 9.3 Total Bilirubin 0.20 AST 10 L ALT 24 Alkaline Phosphatase 110 Total Protein 7.8 Albumin 3.4 Globulin 4.4 H Albumin/Globulin Ratio 0.8 L Lipase 89 Radiography Diagnostic Testing: Clinical Impression(s) from Imaging Studies Abdomen/Pelvis CT 02/01/22 01:33 IMPRESSION: 1. Stranding anterior to L5-S1 may be postsurgical or inflammatory/infectious. No abscess identified. Correlate with date of surgery. 2. Cholelithiasis without convincing evidence for acute process. Electronically Signed: Lj Biswas MD at 3:35 EDT , EKG Initial EKG: Comments: EKG done for upper abdominal pain in a 51-year-old male. EKG read by me shows normal sinus rhythm with overall rate of 69. No ectopy noted. No acute ST elevation or depression. MO interval, QRS duration and QTc are normal Discharge Plan Triage Chief Complaint: Abd Pain ED Provider: Barry Andujar Dx/Rx/DC Orders Clinical Impression: Cholelithiasis, Biliary colic Instructions: ED Gallstones with Biliary Colic Prescriptions: New oxycodone-acetaminophen [Percocet] 5-325 mg tablet 1 tab PO Q6H PRN (Reason: pain) 3 Days Qty: 10 RF: 0 ondansetron 4 mg tablet,disintegrating 4 mg PO Q8H PRN (Reason: nausea and vomiting) Qty: 10 RF: 0 No Action omeprazole 20 MG capsule,delayed release(DR/EC) 20 mg PO DAILY RF: 0 Primary Care Provider: Andrew Zapata Referrals: Remington Hillman MD [STAFF PHYSICIAN] - As soon as possible Andrew Zapata, [Primary Care Provider] - Disposition Disposition: Home, Self Care
--- NOTE | 2022-02-01 01:33 | EKG12_ITS ---
Test Reason : ABDOMINAL PAIN Blood Pressure : / mmHG Vent. Rate : 069 BPM Atrial Rate : 069 BPM P-R Int : 170 ms QRS Dur : 086 ms QT Int : 392 ms P-R-T Axes : 022 068 045 degrees QTc Int : 420 ms Normal sinus rhythm Normal ECG Confirmed by ARVIN WEBB, HUSSAIN ([id number]), online content editor ELENA GUILLORY ([id number]) on 02/02/2022 9:59:38 AM Referred By: PL Confirmed By:HUSSAIN SHERIDAN MD
--- NOTE | 2022-02-01 01:33 | CT_ITS ---
EXAM: CT ABDOMEN AND PELVIS WITH INTRAVENOUS CONTRAST CLINICAL INDICATION: RUQ pain TECHNIQUE: Helically acquired images were obtained of the abdomen and pelvis with intravenous contrast. CTDIvol = ( 18.77 ) mGy, DLP = ( 1344.68 ) mGycm This CT exam was performed using one or more of the following dose reduction techniques: automated exposure control, adjustment of the mA and/or kV according to patient size, and/or use of iterative reconstruction technique. This report was created using [employer] report generation technology. CONTRAST: IV 100mL [id number]-[id number] COMPARISON: 06/10/2017 FINDINGS: LOWER THORAX: Unremarkable. Lung bases are clear. No cardiomegaly. No significant pericardial effusion. ABDOMEN: LIVER: Suggestion of hepatic steatosis. Small hypodense lesion at the posterior segment of the right hepatic lobe may be too small to characterize but appears nonaggressive. GALLBLADDER AND BILE DUCTS: Cholelithiasis. No acute cholecystitis. No intra- or extrahepatic biliary ductal dilation. PANCREAS: Unremarkable. No focal cystic or solid mass. SPLEEN: Unremarkable. Normal size without focal cystic or solid mass. ADRENALS: Unremarkable. No nodules. KIDNEYS AND URETERS: Unremarkable. Normal renal size and position. No hydronephrosis. STOMACH AND BOWEL: Unremarkable. No stomach or bowel distention. No focal inflammatory change. PELVIS: APPENDIX: No evidence of acute appendicitis. BLADDER: Unremarkable. REPRODUCTIVE: Prominent prostate is nonspecific. Correlate with PSA levels. ABDOMEN and PELVIS: INTRAPERITONEAL SPACE: Unremarkable. No ascites or other fluid collection. No free air. BONES/JOINTS: Stranding anterior to L5-S1 may be postsurgical or inflammatory/infectious. No abscess. No obvious bony erosion or destruction seen at the L5-S1 level. L5-S1 posterior osteometallic fusion noted with no gross hardware consultations. No suspicious lytic or blastic abnormality. SOFT TISSUES: Unremarkable. No discrete abdominal or pelvic wall hernia. VASCULATURE: Unremarkable. Abdominal aorta is non-dilated. LYMPH NODES: Unremarkable. No enlarged lymph nodes. CT/Abdomen/Pelvis W IV Cont ONLY IMPRESSION: 1. Stranding anterior to L5-S1 may be postsurgical or inflammatory/infectious. No abscess identified. Correlate with date of surgery. 2. Cholelithiasis without convincing evidence for acute process. Electronically Signed: Lj Biswas MD at 3:35 EDT Reading Location ID and State: [facility] / [place] Tel , Service support ,
[2022-02-01] MEDS: 0.9% Normal Saline 1,000 ML 1000 ML IV (01:38)
[2022-02-01] MEDS: Ondansetron 4 MG/2 ML Vial IV (01:38)
[2022-02-01] MEDS: Morphine 4 MG/ML Syringe IV ×2 (01:38→04:04)
[2022-02-01 01:46] LABS: Absolute Lymphocyte Count 1.89 X10^3/uL (0.83-4.51); Absolute Neutrophil Count 6.6 X10^3/uL (2.0-7.7); Basophil# 0.03 X10^3/uL; Basophil% 0.3 % (0-1); Eosinophil# 0.17 X10^3/uL; Eosinophils% 1.8 % (0-5); Hematocrit 42.1 % (40-54); Hemoglobin 13.4 g/dL (13.0-16.5); Lymphocyte # 1.89 X10^3/ul (0.83-4.51); Mean Corp Hgb Conc 31.8 g/dL (32-36); Mean Corpuscular Hgb 26.4 pg (27.0-32.0); Mean Platelet Vol. 9.2 fl (6.2-12.0); Monocyte# 0.74 X10^3/uL; Monocyte% 7.8 % (0-10); NRBC Flagged by Analyzer 0 % (0-5); Neutrophil # 6.59 X10^3/uL (2.7-7.7); Neutrophil % 69.9 % (47-70); Platelet Count 359 K/mm3 (150-450); RBC Distribution Width SD 42.5 fl (35.1-43.9); Red Blood Count 5.07 M/mm3 (4.6-6.2); White Blood Count 9.4 K/mm3 (4.4-11.0)
[2022-02-01 02:08] LABS: ALB/GLOB Ratio 0.8 RATIO (0.9-2.4); AST(SGOT) 10 U/L (15-37); Alanine Aminotransfer ALT/SGPT 24 U/L (16-61); Albumin, Serum 3.4 g/dL (3.2-5.0); Alkaline Phosphatase 110 U/L (45-117); Anion Gap 4 (5-15); BUN 17 mg/dL (7-18); BUN/Creat Ratio 18.2 RATIO (10-20); Calcium,Total 9.3 mg/dL (8.5-10.1); Chloride 109 mmol/L (98-107); Creatinine, Serum 0.93 mg/dL (0.70-1.30); EST Glomerular Filtration Rate 91 mL/min (>60); Est Glom Filt Rate - Afr Amer 110 mL/min (>60); Globulin 4.4 g/dL (2.2-4.2); Glucose 116 mg/dL (74-106); Lipase 89 U/L (73-393); Potassium 3.9 mmol/L (3.5-5.1); Protein, Total 7.8 g/dL (6.4-8.2); Sodium Level 141 mmol/L (136-145)
[2022-02-01] MEDS: Ketorolac 15 MG/ML Vial IV (04:03)
[2022-02-01] MEDS: Contrast Allergy Safety Check IV (04:05)
[2022-02-01 04:06] VITALS: BP 140/75; PULSE 67; RESP 18; O2SAT 96
[2022-02-01 06:22] VITALS: BP 140/58; PULSE 65; RESP 18; O2SAT 95
== END 2022-02-01 06:27 | disposition home or self-care (01) ==
PROVIDERS: Emergency Provider Emergency Medicine; PCP Student in an Organized Health Care Education/Training Program; Visit Provider Emergency Medicine
DX: K80.70 Calculus of gallbladder and bile duct without cholecystitis without obstruction (principal); K80.20 Calculus of gallbladder without cholecystitis without obstruction; R73.9 Hyperglycemia, unspecified; E55.9 Vitamin D deficiency, unspecified; F17.290 Nicotine dependence, other tobacco product, uncomplicated; Z79.899 Other long term (current) drug therapy
CPT/HCPCS: 74177; 80053; 83690; 85025; 93005; 96361; 96374; 96375; 96376; 99283; J7030; Q9967; A4216; J2405

== ENCOUNTER 2022-02-04 10:16 | Observation (INO) | payer OTHER, SELFPAY ==
[2022-02-04 10:17] VITALS: BP 133/76; PULSE 71; RESP 18; TEMP 35.5; O2SAT 100; BMI 35.5
--- NOTE | 2022-02-04 10:45 | US_ITS ---
STUDY: ABDOMINAL ULTRASOUND - RIGHT UPPER QUADRANT REASON FOR VISIT: Male, 51 years old . Worsening right upper quadrant pain. TECHNIQUE: Ultrasound evaluation of the right upper quadrant was performed with real-time and static kraft-scale imaging. TECHNICAL QUALITY: Adequate. COMPARISON: Comparison is made with prior CT scan and abdomen dated 02/01/2022. FINDINGS: Liver: The liver measures 16.4 cm. There is increased echogenicity consistent with fatty infiltration. The bile ducts are within normal limits. There is hepatic color flow. The direction of portal flow is hepatopetal. There is no demonstrated mass lesion. Gallbladder: Normal distended gallbladder. The gallbladder wall measures 2 mm. There is a positive sonographic Sosa''s sign. There is no pericholecystic fluid. There are multiple echogenic structures within the gallbladder, consistent with multiple gallstones. Sludge is seen within the gallbladder lumen. Common Bile Duct (C.B.D.): The common bile duct measures 4 mm. Pancreas: Normal size of the head, body and tail of the pancreas. There is normal echogenicity of the pancreas. There is no demonstrated pancreatic mass or cyst. Right Kidney: Normal size of the right kidney. The right kidney measures 10.8 cm x 5.2 cm x 5 cm. Normal renal cortex. The right cortex measures 1.4 cm. There is no demonstrated renal mass or cyst. There is no right hydronephrosis. US/Gallbladder IMPRESSION: Fatty infiltration of the liver. Multiple gallstones. Small amount of sludge is seen in the gallbladder lumen. Electronically Signed: Damian Ling MD at 12:24 EDT ,
--- NOTE | 2022-02-04 10:46 | EX.ED.DYSGE1 ---
HPI History of Present Illness Chief Complaint: Abd Pain Informant: patient Narrative Narrative: 51-year-old male presents to the emergency department right upper quadrant abdominal pain. Patient states that he was seen in the emergency department a couple days ago and was diagnosed with cholelithiasis. He went home and his pain subsided for a day but is slowly been building back up. Last night around 0400 hours he woke with severe pain. He has had vomiting today. He tried taking the Percocet that was prescribed to him but it did not help. He called the on-call surgeon who recommended he come back to the emergency. He denies any known fevers. No changes in bowel or bladder. [facility] Medical History Diverticular disease of colon Vitamin D deficiency Home Medications omeprazole 20 mg capsule,delayed release 20 mg PO DAILY 02/05/18 [History Last Taken 01/26/19 08:00 20 mg] ondansetron 4 mg disintegrating tablet 4 mg PO Q8H PRN nausea and vomiting #10 tabs 02/01/22 [Rx Last Taken Unknown] oxycodone-acetaminophen 5 mg-325 mg tablet (Percocet) 1 tab PO Q6H PRN pain 3 days #10 tabs 02/01/22 [Rx Last Taken Unknown] Vitamin D (with calcium) 3 tab PO/SL DAILY 02/04/22 [History Last Taken Unknown] omeprazole 20 mg capsule,delayed release 20 mg PO DAILY 02/04/22 [History Last Taken Unknown] Allergy/AdvReac Type Severity Reaction Status Date / Time venom-honey bee Allergy Anaphylaxis Verified 02/04/22 10:19 [bee venom (honey bee)] INHALED STEROIDS AdvReac Other Uncoded 02/04/22 10:19 Social History (Updated 02/04/22 @ 10:[address] Favio Root DO) current gender identity: male Smoking Status: Current some day smoker tobacco type: cigars substance use type: does not use ROS ROS ED Constitutional Constitutional ED: Denies chills or weight loss Eyes Eyes: Denies change in vision or diplopia ENT ENT ED: Denies ear pain, rhinorrhea or sore throat Cardiovascular Cardiovascular: Denies chest pain, orthopnea, palpitations or racing heartbeat Respiratory/Chest Respiratory/Chest: Denies cough, dyspnea or orthopnea Gastrointestinal Gastrointestinal: Reports abdominal pain, nausea and vomiting; Denies constipation or diarrhea Genitourinary Genitourinary ED: Denies dysuria, hematuria or urinary frequency Musculoskeletal Musculoskeletal: Denies arthralgias or myalgias Integumentary Denies abscess or rash Neurologic Neurologic: Denies headache(s) or weakness Psychiatric Psychiatric: Denies anxiety, depression, suicidal ideation or suicidal thoughts Endocrine Endocrinology: Denies polydipsia, polyphagia or polyuria Allergic/Immunologic Allergic/Immunologic ED: Denies mouth swelling, tongue swelling or urticaria EXAM Physical Exam Const Vital Signs: 02/04/22 10:17 02/04/22 11:57 02/04/22 12:33 Temperature 96 F L 97.7 F L Temperature Source Temporal Oral Pulse Rate 71 65 68 Respiratory Rate 18 16 18 Blood Pressure 133/76 H 139/85 H 147/89 H Blood Pressure Mean 95 103 108 Pulse Ox 100 99 95 Oxygen Delivery Method Room Air Room Air Room Air Positive well nourished and well developed General Appearance ED: well developed HEENT Reports normocephalic, head/scalp atraumatic and moist mucous membranes Eyes PERRL and EOMs intact bilaterally Neck no lymphadenopathy, supple and no JVD Resp normal respiratory effort and clear to auscultation bilaterally Cardio regular rate, regular rhythm and no murmurs GI Inspection: Negative for abdominal distention Auscultation: normoactive bowel sounds Palpation: soft, tender RUQ and guarding RUQ Back/Spine no CVA tenderness and normal ROM Extremity normal to inspection General Extremety ED: Negative for edema General Extremity: Negative for edema Neuro oriented x3 and CN's II-XII intact bilaterally Sensorium / Orientation: alert Motor Exam: strength 5/5 throughout Psych mental status grossly normal Mood & Affect: Negative for depressed or tearful Skin no rashes or lesions noted and no wounds MDM MDM MDM Narrative Medical decision making narrative: CBC CMP and lipase were normal. Urinalysis is negative. Gallbladder ultrasound shows cholelithiasis. Patient received IV fluids and Zofran and Dilaudid. Still having pain and he got additional Dilaudid. Plan is admission to the hospital for cholecystectomy Dr. Hillman has come to the emergency room and seen him. COVID test is negative. Lab Data Attestation: I reviewed the patient's lab results. Labs: Laboratory Results - last 24 hr 02/04/22 02/04/22 02/04/22 10:25 10:25 12:04 WBC 8.7 RBC 5.03 Hgb 13.2 Hct 41.4 MCV 82.3 MCH 26.2 L MCHC 31.9 L RDW Std Deviation 41.2 RDW Coeff of Chloe 13.8 Plt Count 356 MPV 9.1 Immature Gran % (Auto) 0.300 Neut % (Auto) 79.9 H Lymph % (Auto) 12.5 L Trigg % (Auto) 6.4 Eos % (Auto) 0.6 Baso % (Auto) 0.3 Absolute Neuts (auto) 7.0 Absolute Lymphs (auto) 1.09 Nucleated RBC % 0 Sodium 139 Potassium 3.8 Chloride 107 Carbon Dioxide 30.0 Anion Gap 2 L BUN 16 Creatinine 0.97 Estim Creat Clear Calc 81.30 Est GFR (MDRD) Af Amer 105 Est GFR (MDRD) Non-Af 87 BUN/Creatinine Ratio 16.5 Glucose 113 H Calcium 9.1 Total Bilirubin 0.30 Direct Bilirubin 0.14 AST 11 L ALT 23 Alkaline Phosphatase 110 Total Protein 7.8 Albumin 3.3 Globulin 4.5 H Lipase 63 L Urine Color Yellow Urine Clarity Clear Urine pH 6.0 Ur Specific [place] 1.020 Urine Protein 30 H Urine Glucose (UA) Normal Urine Ketones Negative Urine Occult Blood Negative Urine Nitrite Negative Urine Bilirubin Negative Urine Urobilinogen Normal Ur Leukocyte Esterase Negative Urine RBC 0 SEEN Urine WBC 0 SEEN Ur Squamous Epith Cells 0 SEEN Urine Bacteria 0 SEEN Urine Mucus 0 SEEN Radiography Diagnostic Testing: Clinical Impression(s) from Imaging Studies Gallbladder Ultrasound 02/04/22 10:45 IMPRESSION: Fatty infiltration of the liver. Multiple gallstones. Small amount of sludge is seen in the gallbladder lumen. Electronically Signed: Damian Ling MD at 12:24 EDT , EKG Initial EKG: Attestation: I personally reviewed and interpreted this EKG as follows: Comments: Normal sinus rhythm with a ventricular rate of 62 bpm Discharge Plan Dx/Rx/DC Orders Clinical Impression: Biliary colic, Cholelithiasis Disposition Disposition: Acute Care Hospital [facility]
[2022-02-04] MEDS: 0.9% Normal Saline 1,000 ML 1000 ML IV (10:51)
[2022-02-04] MEDS: HYDROmorphone 1 MG/ML Syringe IV ×2 (10:52→12:31)
[2022-02-04] MEDS: Ondansetron 4 MG/2 ML Vial IV (10:52)
[2022-02-04 10:53] LABS: Absolute Lymphocyte Count 1.09 X10^3/uL (0.83-4.51); Basophil# 0.03 X10^3/uL; Basophil% 0.3 % (0-1); Eosinophil# 0.05 X10^3/uL; Eosinophils% 0.6 % (0-5); Hematocrit 41.4 % (40-54); Hemoglobin 13.2 g/dL (13.0-16.5); Lymphocyte # 1.09 X10^3/ul (0.83-4.51); Lymphocyte % 12.5 % (19-41); Mean Corp Hgb Conc 31.9 g/dL (32-36); Mean Corpuscular Hgb 26.2 pg (27.0-32.0); Mean Corpuscular Volume 82.3 fL (80-94); Mean Platelet Vol. 9.1 fl (6.2-12.0); Monocyte# 0.56 X10^3/uL; Monocyte% 6.4 % (0-10); NRBC Flagged by Analyzer 0 % (0-5); Neutrophil # 6.95 X10^3/uL (2.7-7.7); Neutrophil % 79.9 % (47-70); Platelet Count 356 K/mm3 (150-450); RBC Distribution Width CV 13.8 % (11.6-14.6); RBC Distribution Width SD 41.2 fl (35.1-43.9); Red Blood Count 5.03 M/mm3 (4.6-6.2); White Blood Count 8.7 K/mm3 (4.4-11.0)
[2022-02-04 11:09] LABS: AST(SGOT) 11 U/L (15-37); Alanine Aminotransfer ALT/SGPT 23 U/L (16-61); Albumin, Serum 3.3 g/dL (3.2-5.0); Alkaline Phosphatase 110 U/L (45-117); Anion Gap 2 (5-15); BUN 16 mg/dL (7-18); BUN/Creat Ratio 16.5 RATIO (10-20); Bilirubin, Direct 0.14 mg/dL (0.00-0.30); Calcium,Total 9.1 mg/dL (8.5-10.1); Chloride 107 mmol/L (98-107); Creatinine, Serum 0.97 mg/dL (0.70-1.30); EST Glomerular Filtration Rate 87 mL/min (>60); Est Glom Filt Rate - Afr Amer 105 mL/min (>60); Globulin 4.5 g/dL (2.2-4.2); Glucose 113 mg/dL (74-106); Lipase 63 U/L (73-393); Potassium 3.8 mmol/L (3.5-5.1); Protein, Total 7.8 g/dL (6.4-8.2); Sodium Level 139 mmol/L (136-145)
[2022-02-04 11:57] VITALS: BP 139/85; PULSE 65; RESP 16; O2SAT 99
[2022-02-04 12:08] LABS: Bacteria 0 SEEN /hpf (None Seen); Mucous, Urine 0 SEEN /hpf (<or=2+); Red Blood Cells-Urine 0 SEEN /hpf (0-5); Squamous Epithelial Cells - UA 0 SEEN /hpf (0-5); White Blood Cells 0 SEEN /hpf (0-5)
[2022-02-04 12:09] LABS: Color, Urine Yellow (Yellow); Glucose, Dipstick Normal (Normal); Ketone-Dipstick Negative (Negative); Leukocyte Esterase-Dipstick Negative /ul (Negative); Nitrite-Dipstick Negative (Negative); Occult Blood-Urine Negative /ul (Negative); Protein-Dipstick 30 mg/dl (Negative); Urine Bilirubin Dipstick Negative (Negative); Urine Clarity Clear (Clear); Urine Urobilinogen Normal (Normal)
--- NOTE | 2022-02-04 12:27 | EKG12_ITS ---
Test Reason : Blood Pressure : / mmHG Vent. Rate : 062 BPM Atrial Rate : 062 BPM P-R Int : 200 ms QRS Dur : 092 ms QT Int : 412 ms P-R-T Axes : 036 066 041 degrees QTc Int : 418 ms Normal sinus rhythm with sinus arrhythmia Normal ECG Confirmed by LORENZA WEBB, FAM ([id number]), web content editor ANUJ BERMAN ([id number]) on 02/07/2022 10:43:10 AM Referred By: Confirmed By:FAM BRITT MD
[2022-02-04 12:33] VITALS: BP 147/89; PULSE 68; RESP 18; TEMP 36.5; O2SAT 95
--- NOTE | 2022-02-04 12:50 | PCM.HP.STD ---
HPI - General General Date of Admission: 02/04/22 HPI Narrative NASIM MOORE, is a 51 M who presents with right upper quadrant pain and vomiting. Patient was in the emergency room about 4 days ago and was sent home with pain medication. He says he was doing okay for the last couple days and then this morning at 4 AM woke up with severe pain and vomiting. Patient denies any fevers or chills. [facility] Medical History Diverticular disease of colon Vitamin D deficiency Home Medications omeprazole 20 mg capsule,delayed release 20 mg PO DAILY 02/05/18 [History Last Taken 01/26/19 08:00 20 mg] ondansetron 4 mg disintegrating tablet 4 mg PO Q8H PRN nausea and vomiting #10 tabs 02/01/22 [Rx Last Taken Unknown] oxycodone-acetaminophen 5 mg-325 mg tablet (Percocet) 1 tab PO Q6H PRN pain 3 days #10 tabs 02/01/22 [Rx Last Taken Unknown] Vitamin D (with calcium) 3 tab PO/SL DAILY 02/04/22 [History Last Taken Unknown] omeprazole 20 mg capsule,delayed release 20 mg PO DAILY 02/04/22 [History Last Taken Unknown] Allergy/AdvReac Type Severity Reaction Status Date / Time venom-honey bee Allergy Anaphylaxis Verified 02/04/22 10:19 [bee venom (honey bee)] INHALED STEROIDS AdvReac Other Uncoded 02/04/22 10:19 Social History (Updated 02/04/22 @ 10:[address] Favio Root DO) current gender identity: male Smoking Status: Current some day smoker tobacco type: cigars substance use type: does not use ROS Constitutional Constitutional: Reports anorexia; Denies fatigue or fever(s) Eyes Eyes: Denies blurry vision ENT HEENT: Denies abnormal hearing Cardiovascular Cardiovascular: Denies chest pain Respiratory/Chest Respiratory/Chest: Denies cough Gastrointestinal Gastrointestinal: Reports abdominal pain, nausea and vomiting; Denies constipation, diarrhea or dysphagia Genitourinary Genitourinary: Denies change in urinary stream Musculoskeletal Musculoskeletal: Denies abnormal gait Integumentary Integumentary: Denies jaundice Neurologic Neurologic: Denies dizziness Psychiatric Psychiatric: Denies anxiety Endocrine Endocrinology: Denies flushing Hematologic/Lymphatic Hematologic/Lymphatic: Denies easy bruising Vital Signs Vital Signs Vital Signs: 02/04/22 10:17 02/04/22 11:57 02/04/22 12:33 Temperature 96 F L 97.7 F L Temperature Source Temporal Oral Pulse Rate 71 65 68 Respiratory Rate 18 16 18 Blood Pressure 133/76 H 139/85 H 147/89 H Blood Pressure Mean 95 103 108 Pulse Ox 100 99 95 Oxygen Delivery Method Room Air Room Air Room Air Weight Weight: 220 lb Body Mass Index (BMI) 35.5 Physical Exam Const oriented x3 Resp normal respiratory effort Cardio regular rate and regular rhythm GI soft to palpation Palpation: tender RUQ Extremity normal to inspection Results Lab / Micro Data Result Diagrams: 02/04/22 10:25 02/04/22 10:25 Labs: Laboratory Results - last 24 hr 02/04/22 10:25: WBC 8.7, RBC 5.03, Hgb 13.2, Hct 41.4, MCV 82.3, MCH 26.2 L, MCHC 31.9 L, RDW Std Deviation 41.2, RDW Coeff of Chloe 13.8, Plt Count 356, MPV 9.1, Immature Gran % (Auto) 0.300, Neut % (Auto) 79.9 H, Lymph % (Auto) 12.5 L, Armstrong % (Auto) 6.4, Eos % (Auto) 0.6, Baso % (Auto) 0.3, Absolute Neuts (auto) 7.0, Absolute Lymphs (auto) 1.09, Nucleated RBC % 0 02/04/22 10:25: Sodium 139, Potassium 3.8, Chloride 107, Carbon Dioxide 30.0, Anion Gap 2 L, BUN 16, Creatinine 0.97, Estim Creat Clear Calc 81.30, Est GFR (MDRD) Af Amer 105, Est GFR (MDRD) Non-Af 87, BUN/Creatinine Ratio 16.5, Glucose 113 H, Calcium 9.1, Total Bilirubin 0.30, Direct Bilirubin 0.14, AST 11 L, ALT 23, Alkaline Phosphatase 110, Total Protein 7.8, Albumin 3.3, Globulin 4.5 H, Lipase 63 L 02/04/22 12:04: Urine Color Yellow, Urine Clarity Clear, Urine pH 6.0, Ur Specific [place]ck[place] 1.020, Urine Protein 30 H, Urine Glucose (UA) Normal, Urine Ketones Negative, Urine Occult Blood Negative, Urine Nitrite Negative, Urine Bilirubin Negative, Urine Urobilinogen Normal, Ur Leukocyte Esterase Negative, Urine RBC 0 SEEN, Urine WBC 0 SEEN, Ur Squamous Epith Cells 0 SEEN, Urine Bacteria 0 SEEN, Urine Mucus 0 SEEN Radiology Impression Gallbladder Ultrasound 02/04/22 10:45 IMPRESSION: Fatty infiltration of the liver. Multiple gallstones. Small amount of sludge is seen in the gallbladder lumen. Electronically Signed: Damian Ling MD at 12:24 EDT , Assessment & Plan Assessment/Plan (1) Cholelithiasis: PLAN: Patient has cholelithiasis and possible acute cholecystitis. His white count is normal but he does have a left shift and he is ultrasound shows gallstones with a gallstone in the neck of the gallbladder. Wall thickness is normal. I recommend laparoscopic cholecystectomy. I will admit the patient and taken for surgery later today. I discussed the procedure in detail with the patient. I discussed the risks, benefits, and alternatives of the procedure. I discussed the risks including but not limited to bleeding, infection, injury to surrounding organs such as the liver, bile duct, bowels. I did discuss the possibility of having to convert to an open procedure as well as the possibility that if any injuries occurred this may necessitate further surgery at a tertiary care center. Remington Hillman MD Pager: [facility] [address] [place] [address], [address] [place] [address] Office:
[2022-02-04 13:07] VITALS: RESP 18
--- NOTE | 2022-02-04 14:19 | NURSING ---
SHANTAL FINLEY AWARE THAT PT IS HERE AND WILL BE GOING TO SURGERY. LEFT MESSAGE AT FACILITY
[2022-02-04 14:22] VITALS: BMI 31.5
[2022-02-04 14:32] VITALS: BP 154/85; PULSE 80; RESP 18; TEMP 36.7; O2SAT 98
[2022-02-04 14:54] VITALS: BMI 31.5
[2022-02-04] MEDS: Lactated Ringers 1,000 ML 100 ML IV (14:58)
[2022-02-04] MEDS: Morphine 2 MG/ML Syringe IV ×3 (17:26→22:21)
[2022-02-04] MEDS: 0.9% Normal Saline 1,000 ML 100 ML IV (18:32)
[2022-02-04 20:14] VITALS: BP 143/82; PULSE 70; RESP 16; TEMP 36.7; O2SAT 94
[2022-02-05] VITALS (14 sets, daily range): BP systolic 138–168; BP diastolic 72–91; PULSE 57–82; RESP 16–20; TEMP 36.4–37.3; O2SAT 93–100; BMI 31.5
--- NOTE | 2022-02-05 | GALL_PTH ---
PATIENT: NASIM MOORE LOC: MS3 U#:[id number] AGE/SX: 51/M ROOM: DE310 RE02/04/[address]: Dr. Remington Hillman MD : 1970 BED: 1 DIS: 02/06/2022 SPEC #: [id number] RECD: 02/07/22 06:41 STATUS: FREDO TRAYLOR #: [id number] DANIEL: 02/05/22 00:[address]: Remington Hillman DEPT: SURGICAL PATHOLOGY RECD BY: Gulshan Chand ENTERED: 02/07/22 08:54 SP TYPE: RISHI RODRIGUEZ DR: Dr. Andrew Zapata DO Tissues: Gallbladder, NOS Procedures: Surgery Specimen Level III HEADER OPERATION: Laparoscopic cholecystectomy with IOC PRE-OP DIAGNOSIS: Cholelithiasis, cholecystitis TISSUE SUBMITTED: Gallbladder MICROSCOPIC DIAGNOSIS Gallbladder, cholecystectomy: Cholesterolosis, acute and chronic cholecystitis and cholelithiasis. AM:waqas 02/08/2022 MICROSCOPIC DESCRIPTION Slides are reviewed. GROSS DESCRIPTION Received is one container labeled with the patient's name and designated gallbladder. The specimen consists of a gallbladder measuring 6 cm in length and up to 3.5 cm in diameter. The external surface is pink-jeong, smooth and glistening for the most part. Focally it is granular, hemorrhagic and contains cautery artifact. The gallbladder contains thick, green-yellow mucoid bile and three mulberry, greenish stones measuring in aggregate 1.5 x 1 x 0.5 cm and 0.5 to 0.7 cm in greatest dimension. The mucosa also shows several yellowish streaks consistent with cholesterolosis. The gallbladder wall measures up to 0.8 cm in thickness. Increased amount of subserosal fat is noted. Owner Operator Tanker Truck Driver sections from the gallbladder and the cystic duct are submitted in one cassette. / SJ:waqas 02/07/2022 TC:2 CPT: 46157
[2022-02-05] MEDS: 0.9% Normal Saline 1,000 ML 100 ML IV ×2 (04:18→13:16)
[2022-02-05] MEDS: Morphine 2 MG/ML Syringe IV ×4 (04:22→19:07)
[2022-02-05] MEDS: Ondansetron 4 MG/2 ML Vial IV (04:28)
[2022-02-05] MEDS: 0.9% Saline Lock 10 ML Syringe IV ×2 (11:32→19:09)
--- NOTE | 2022-02-05 12:32 | NURSING ---
Taken off the unit via Bed by LESLY Barnard at this time for surgery. is present.
--- NOTE | 2022-02-05 13:00 | RAD_ITS ---
CLINICAL HISTORY: Male, 51 years old. Status post laparoscopic cholecystectomy PROCEDURE: CHOLANGIOGRAM - FLUOROSCOPY TIME (if supplied): (2.8 seconds) minutes/seconds FINDINGS: Multiple fluoroscopic images of intraoperative cholangiogram is seen. The common bile duct is visualized. No definite constant filling defect is seen. No evidence of dilatation. Part of the intrahepatic biliary ducts are seen. There is normal drainage into the duodenum. RAD/Cholangiogram/ O R,Initial IMPRESSION: Intraoperative exam as described above. Electronically Signed: Gutierrez Lai MD at 15:55 EDT ,
[2022-02-05] MEDS: Bupivacaine Mpf 0.5% 30 ML VIAL (13:22)
--- NOTE | 2022-02-05 13:50 | PCM.OPRPT ---
Problems Associated Problem List Diagnoses (1) Acute cholecystitis due to biliary calculus: Report of Operation Date of Procedure: 02/05/22 Pre-Operative Diagnosis: Acute cholecystitis Post-Operative Diagnosis: Same Surgery/Procedure Performed:: Laparoscopic cholecystectomy with cholangiogram Specimen's removed: Gallbladder and contents Description of Procedure: After obtaining informed consent patient was brought back to the operating room. General anesthesia was induced. The abdomen was prepped and draped in usual sterile fashion. A small midline incision was made superior to the umbilicus and deepened to the level of fascia. The fascia was elevated and incised. Next the peritoneum was elevated and incised in the same fashion. Finger sweep was performed and the Kemp trocar was placed into the abdomen. The balloon was inflated. The abdomen was inflated to 15 mmHg. Next a camera was introduced into the abdomen and the abdomen was inspected. Next under direct visualization three 5-mm ports were placed one subxiphoid and 2 subcostal. Next the gallbladder was elevated and retracted toward the right shoulder. The peritoneum was stripped from the gallbladder. The infundibulum was located and retracted laterally. Next the triangle of Calot was dissected and the cystic duct and cystic artery were identified. Cholangiograms were performed. The Cross clamp was used to clamp across the infundibulum and the catheter needle was inserted into the gallbladder. Under fluoroscopy contrast was instilled into the gallbladder and the common duct, cystic duct as well as proximal hepatic ducts were identified. There was good filling of the duodenum. There were no filling defects noted in the common bile duct. The clamp was removed as well as the needle and the infundibulum was grasped once more. Three hemolock clips were placed across the cystic duct. The cystic duct was then divided leaving 2 clips on the stump. The cystic artery was clipped and divided in the same fashion. The hook cautery was then used to take the gallbladder off of the gallbladder bed. Hemostasis was obtained. Gallbladder fossa was irrigated and no active bleeding or bile leakage was noted. Next the camera was introduced in the subxiphoid port. An Endopouch bag was placed through the umbilical port and the gallbladder was placed into it. The gallbladder was then removed through the umbilical incision. The camera was then reinserted through the umbilical port. The gallbladder fossa was inspected once more and noted to be hemostatic with no leaking bile. The abdomen was suctioned dry. The 5 mm ports were removed under direct visualization. The umbilical port was then removed and the air was removed from the abdomen. Next using an 0 Vicryl suture the umbilical fascia was closed in a [id number] fashion. The umbilical port site was irrigated local anesthetic was administered to all the incisions. All the incisions were closed with interrupted subcuticular 4-0 Monocryl sutures followed by Steri-Strips and dressings. The patient was awoken and taken to PACU in stable condition. Admit VTE Documentation VTE Mechan Device Prophylaxis: SCD's
--- NOTE | 2022-02-05 13:51 | DS.PCM_ITS ---
Providers Date of Admission: 02/04/22 Primary Care Physician: Dr. Andrew Zapata, DO Reason For Visit: acute cholecystitis Diagnosis Discharge Diagnosis (1) Acute cholecystitis due to biliary calculus: Status: Acute Code(s): K80.00 - Calculus of gallbladder with acute cholecystitis without obstruction Medications at Discharge Home Medications ondansetron 4 mg disintegrating tablet 4 mg PO Q8H PRN nausea and vomiting #10 tabs 02/01/22 Vitamin D (with calcium) 3 tab PO/SL DAILY 02/04/22 omeprazole 20 mg capsule,delayed release 20 mg PO DAILY 02/04/22 acetaminophen 325 mg tablet (Tylenol) 650 mg PO Q4H PRN PRN Pain Or Fever #0 tabs 02/05/22 oxycodone 5 mg tablet 5 - 10 mg PO Q4H PRN PRN Pain Score 4-10/10 5 days #30 tabs 02/05/22 Hospital Course Operations cholecystecomy Summary of Care Provided Hospital Course: Patient was admitted with acute cholecystitis. Patient was admitted and started on antibiotics and due to the surgery schedule he was taken the next day for laparoscopic cholecystectomy. He tolerated the procedure well, once he is tolerating diet he was discharged home. Weight / BMI Weight Weight: 195 lb 5.273 oz Body Mass Index (BMI) 31.5 ABG / Lab / Microbiology Data Result Diagrams: 02/04/22 10:25 02/04/22 10:25 Microbiology: Microbiology 02/04/22 12:37 Nasal Secretion SARS-CoV-2 Antigen (Rapid) - Final D/C Instructions Discharge Diet: Light diet - advance as tolerated Lifting Restrictions: 20 lbs for 2 weeks Call your doctor if your incision/area has: Continuous Slow Oozing, Sudden Increased Bleeding, Increased Pain/ Swelling, Increased Redness, Foul Smelling Discharge and Swelling at the incision site Call your doctor if you observe: Fever of 101 or Higher Remove Dressing in: 2 days (Remove bandages in 2 days, remove steri strips in 7- 10 days) Cleanse incision/area with: Soap & Water Please Follow Up With: Remington Hillman MD When: Please call to schedule 2 week follow up appointment. [phone] Meaningful Use Info Meaningful Use Diagnoses (Choose all that apply): None applicable Discharge Plan Admission Admit Date/Time: 02/04/22 12:42 Attending Provider: Remington Hillman Primary Care Provider: Andrew Zapata Discharge Orders/Prescriptions Prescriptions: New acetaminophen [Tylenol] 325 mg Tablet 650 mg PO Q4H PRN PRN (Reason: Pain Or Fever) Qty: 0 0RF oxycodone 5 mg Tablet 5 - 10 mg PO Q4H PRN PRN (Reason: Pain Score 4-10/10) 5 Days Qty: 30 0RF Continued ondansetron 4 mg tablet,disintegrating 4 mg PO Q8H PRN (Reason: nausea and vomiting) Qty: 10 0RF omeprazole 20 mg Capsule,Delayed Release(Dr/Ec) 20 mg PO DAILY Vitamin D (with calcium) 3 tab PO/SL DAILY Discontinued oxycodone-acetaminophen [Percocet] 5-325 mg tablet 1 tab PO Q6H PRN (Reason: pain) 3 Days Qty: 10 0RF Referrals / Follow Up: Andrew Zapata DO [Primary Care Provider] - Disposition Disposition (needs filled in before D/C Order can be placed): Home, Self Care
[2022-02-05] MEDS: oxyCODONE 5 MG Tablet PO (17:27)
[2022-02-06 01:01] VITALS: BP 141/82; PULSE 64; RESP 18; TEMP 36.7; O2SAT 97
[2022-02-06] MEDS: oxyCODONE 5 MG Tablet PO ×2 (01:03→05:54)
[2022-02-06 05:51] VITALS: BP 142/78; PULSE 75; RESP 16; TEMP 36.6; O2SAT 97
--- NOTE | 2022-02-06 07:13 | PN.SURG_ITS ---
Subjective Subjective Patient is feeling better today. He is tolerating a diet with no nausea or vomiting. Pain is well controlled. Objective Data Objective Data Vital Signs: Vital Signs Temp Pulse Resp BP Pulse Ox 98 F 75 16 142/78 H 97 02/06/22 05:51 02/06/22 05:51 02/06/22 05:51 02/06/22 05:51 02/06/22 05:51 Oxygen Flow Rate (L/min) 2 Oxygen Delivery Method Room Air Weight: 195 lb 5.273 oz Body Mass Index (BMI) 31.5 Intake & Output: Intake and Output for Last 24 Hours 02/04/22 02/05/22 02/06/22 23:59 23:59 23:59 Intake Total 1999 3920.00 / 3920.00 Balance 1999 3920.00 / 3920.00 Lab / Micro Data Result Diagrams: 02/04/22 10:25 02/04/22 10:25 Micro: Microbiology 02/04/22 12:37 Nasal Secretion SARS-CoV-2 Antigen (Rapid) - Final Radiography Diagnostic Testing: Radiology Impression Cholangiogram 02/05/22 13:00 IMPRESSION: Intraoperative exam as described above. Electronically Signed: Gutierrez Lai MD at 15:55 EDT , Assessment & Plan Assessment/Plan (1) Acute cholecystitis due to biliary calculus: PLAN: Patient's discharge was held last night due to pain. Today he is in much less pain and he is more comfortable. He will be discharged home. Remington Hillman MD Pager: [facility] [address] [place] [address], [address] [place] [address] Office:
[2022-02-06] MEDS: Pantoprazole Sodium 20 MG Tablet PO (09:25)
--- NOTE | 2022-02-06 10:06 | NURSING ---
Up walking the lira for the second time today. Ate breakfast and tolerated it well.
[2022-02-06 10:19] VITALS: BP 143/82; PULSE 69; RESP 16; TEMP 36.7; O2SAT 97
== END 2022-02-06 13:10 | disposition home or self-care (01) ==
LOC: ED 12:27 → MS3 12:53
PROVIDERS: Admitting Provider Surgery; Emergency Provider Emergency Medicine; PCP Student in an Organized Health Care Education/Training Program; Visit Provider Surgery
PROC: (CPT 47610; principal; 2022-02-05 13:00)
DX: K80.12 Calculus of gallbladder with acute and chronic cholecystitis without obstruction (principal); F17.290 Nicotine dependence, other tobacco product, uncomplicated; Z20.822 Contact with and (suspected) exposure to COVID-19; E55.9 Vitamin D deficiency, unspecified; Z79.899 Other long term (current) drug therapy; Z87.19 Personal history of other diseases of the digestive system; K21.9 Gastro-esophageal reflux disease without esophagitis; Z86.718 Personal history of other venous thrombosis and embolism
CPT/HCPCS: 47563; 74300; 76000; 76705; 80048; 80076; 81001; 83690; 85025; 87811; 88304; 93005; 96361; 96365; 96366; 96375; 96376; 99218; 99251; 99284; J7030; J7120; A4216; G0378; G0463; J2405

== ENCOUNTER 2022-02-26 22:47 | Emergency (ER) | payer OTHER, SELFPAY ==
--- NOTE | 2022-02-26 | RAD_ITS ---
STUDY: X-RAY - ACUTE ABDOMINAL SERIES REASON FOR EXAM: Male, 51 years old. Abdominal pain TECHNIQUE: Single view of the chest. Supine, 4 view(s) of the abdomen were obtained. COMPARISON: Chest radiograph of 06/10/2017.. FINDINGS: The lungs are clear and expanded. Upper normal size heart. Normal mediastinum and kalyn. Normal visualized pulmonary arteries. Thoracic aorta is minimally elongated. Scattered gas and fecal material noted within the colon. No pathologically distended bowel loops, significant air-fluid levels, or pneumoperitoneum identified. Liver and spleen do not appear enlarged. No renal calculi are seen. Surgical mesh markers are projected over the left lower pelvis. No acute osseous abnormality. Prior fusion noted at the L5/S1 level, including pedicle screws in place. RAD/Acute Abdomen Inc Chest IMPRESSION: No radiographic evidence of acute intra-abdominal pathology. Electronically Signed: Jhonatan Nunez MD at 0:32 EDT ,
[2022-02-26 22:49] VITALS: BP 176/86; PULSE 77; RESP 16; TEMP 37.1; O2SAT 99; BMI 31.6
--- NOTE | 2022-02-26 23:04 | EX.ED.GUMALE ---
HPI History of Present Illness Chief Complaint: Complaint Informant: patient Pain Onset: Today Context: Gradual Onset Timing: Continuous Worsened by: Nothing Relieved by: Nothing Urinary Symptoms Genitourinary Symptoms: Urgency and Retention Narrative Narrative: Patient presents with urinary retention that has been getting progressively worse throughout the day today. Patient states he feels cramping and pressure over the suprapubic area. He admits to some urinary urgency. Patient states he is able to start urinating but then he feels like he has to have a bowel movement. Patient states that is able to pass some mucus rectally but then he is unable to urinate any further. Patient states he is passing gas. Patient denies any dysuria or hematuria. Patient denies any fevers or chills. [facility] Medical History (Updated 02/27/22 @ 02:[address] Mejia Portillo DO) Diverticular disease of colon DVT (deep venous thrombosis) Inguinal hernia Open fracture Vitamin D deficiency Home Medications ondansetron 4 mg disintegrating tablet 4 mg PO Q8H PRN nausea and vomiting #10 tabs 02/01/22 [Rx Last Taken Unknown] Vitamin D (with calcium) 3 tab PO/SL DAILY 02/04/22 [History Last Taken Unknown] omeprazole 20 mg capsule,delayed release 20 mg PO DAILY 02/04/22 [History Last Taken Unknown] acetaminophen 325 mg tablet (Tylenol) 650 mg PO Q4H PRN PRN Pain Or Fever #0 tabs 02/05/22 [Rx Last Taken Unknown] polyethylene glycol 3350 17 gram/dose oral powder (Miralax) 17 g PO DAILY #119 grams 02/27/22 [Rx Last Taken Unknown] sodium phosphates 19 gram-7 gram/118 mL enema (Fleet Enema) 118 ml [place] DAILY PRN constipation #532 mL 02/27/22 [Rx Last Taken Unknown] Allergy/AdvReac Type Severity Reaction Status Date / Time venom-honey bee Allergy Anaphylaxis Verified 02/26/22 22:49 [bee venom (honey bee)] INHALED STEROIDS AdvReac Other Uncoded 02/26/22 22:49 Surgical History (Updated 02/26/22 @ 23:[address] Mejia Portillo DO) History of cholecystectomy History of herniorrhaphy Hx of spinal fusion Social History Smoking Status: Current some day smoker tobacco type: cigars substance use type: does not use ROS ROS ED Constitutional Constitutional ED: Denies chills or fever(s) Eyes Eyes: Denies blurry vision or change in vision ENT ENT ED: Reports rhinorrhea; Denies sore throat Cardiovascular Cardiovascular: Denies chest pain or palpitations Respiratory/Chest Respiratory/Chest: Denies cough or dyspnea Gastrointestinal Gastrointestinal: Reports constipation; Denies nausea or vomiting Genitourinary Genitourinary ED: Reports as per HPI and difficulty urinating; Denies dysuria or hematuria Musculoskeletal Musculoskeletal: Denies back pain or neck pain Integumentary Denies abscess or rash Neurologic Neurologic: Reports headache(s); Denies weakness Allergic/Immunologic Allergic/Immunologic ED: Denies mouth swelling or urticaria EXAM Physical Exam Const Vital Signs: 02/26/22 22:49 02/27/22 01:00 Temperature 98.7 F Temperature Source Oral Pulse Rate 77 89 Respiratory Rate 16 15 Blood Pressure 176/86 H 155/71 H Blood Pressure Mean 116 99 Pulse Ox 99 99 Oxygen Delivery Method Room Air Room Air Positive well nourished and well developed General Appearance ED: well developed HEENT Reports moist mucous membranes Neck supple and no JVD Resp normal respiratory effort and clear to auscultation bilaterally Cardio regular rate, regular rhythm and no murmurs GI normal to inspection, nondistended, normoactive bowel sounds Palpation: soft and tender suprapubic; Negative for guarding Extremity normal to inspection General Extremety ED: Negative for edema or tenderness General Extremity: Negative for edema Neuro oriented x3, CN's II-XII intact bilaterally and no sensory deficits noted Sensorium / Orientation: alert Motor Exam: strength 5/5 throughout Psych mental status grossly normal Skin no rashes or lesions noted MDM MDM MDM Narrative Medical decision making narrative: Bell catheter was placed. Patient feels better after this. CBC was within normal limits. Comprehensive metabolic profile was within normal limits. Urinalysis does not show any evidence of urinary tract infection. Acute abdominal x-rays were obtained. There are 6 views. On my interpretation, there is stool throughout the colon. There is no evidence of obstruction or perforation. Radiologist also interpreted the x-rays and agrees. Patient states he is unable to have a bowel movement. Patient was given a soapsuds enema. Patient had minimal results with this. Patient was given a bottle of mag citrate to go home with. Patient was given prescription for fleets enema and MiraLAX. Patient was instructed to follow-up with his primary care physician in 2 days for catheter removal. Patient was instructed return the emergency department for catheter removal if he is unable to follow-up with his primary care physician. Patient understood and was agreeable with this plan. All questions were answered. Lab Data Attestation: I reviewed the patient's lab results. Labs: Laboratory Results - last 24 hr 02/26/22 02/26/22 02/26/22 23:30 23:30 23:30 WBC 10.4 RBC 4.66 Hgb 12.4 L Hct 38.5 L MCV 82.6 MCH 26.6 L MCHC 32.2 RDW Std Deviation 41.5 RDW Coeff of Chloe 13.9 Plt Count 374 MPV 8.8 Immature Gran % (Auto) 0.300 Neut % (Auto) 74.2 H Lymph % (Auto) 16.8 L Bureau % (Auto) 7.8 Eos % (Auto) 0.7 Baso % (Auto) 0.2 Absolute Neuts (auto) 7.7 Absolute Lymphs (auto) 1.75 Nucleated RBC % 0 Sodium 137 Potassium 3.9 Chloride 105 Carbon Dioxide 28.0 Anion Gap 4 L BUN 11 Creatinine 0.83 Estim Creat Clear Calc 95.02 Est GFR (MDRD) Af Amer 126 Est GFR (MDRD) Non-Af 104 BUN/Creatinine Ratio 13.3 Glucose 104 Calcium 9.5 Total Bilirubin 0.60 AST 17 ALT 30 Alkaline Phosphatase 130 H Total Protein 7.9 Albumin 3.4 Globulin 4.5 H Albumin/Globulin Ratio 0.8 L Urine Color Yellow Urine Clarity Clear Urine pH 6.0 Ur Specific [place] 1.010 Urine Protein 15 H Urine Glucose (UA) Normal Urine Ketones Negative Urine Occult Blood 25 H Urine Nitrite Negative Urine Bilirubin Negative Urine Urobilinogen Normal Ur Leukocyte Esterase Negative Urine RBC 0-5 SEEN Urine WBC 0 SEEN Ur Squamous Epith Cells 0 SEEN Urine Bacteria 0 SEEN Urine Mucus 0 SEEN Radiography Diagnostic Testing: Clinical Impression(s) from Imaging Studies Acute Abdomen Series 02/26/22 00:00 IMPRESSION: No radiographic evidence of acute intra-abdominal pathology. Electronically Signed: Jhonatan Nunez MD at 0:32 EDT , Discharge Plan Triage Chief Complaint: Complaint ED Provider: Mejia Portillo Dx/Rx/DC Orders Clinical Impression: Acute urinary retention, Constipation in male Instructions: ED Constipation (Adult), ED Bell Catheter, Care, ED Urinary Retention, Male Prescriptions: New polyethylene glycol 3350 [Miralax] 17 gram/dose powder 17 g PO DAILY Qty: 119 0RF Fleet Enema 19-7 gram/118 mL enema 118 ml OK DAILY PRN (Reason: constipation) Qty: 532 0RF No Action ondansetron 4 mg tablet,disintegrating 4 mg PO Q8H PRN (Reason: nausea and vomiting) Qty: 10 0RF omeprazole 20 mg Capsule,Delayed Release(Dr/Ec) 20 mg PO DAILY Vitamin D (with calcium) 3 tab PO/SL DAILY acetaminophen [Tylenol] 325 mg Tablet 650 mg PO Q4H PRN PRN (Reason: Pain Or Fever) Qty: 0 0RF Primary Care Provider: Andrew Zapata Referrals: Andrew Zapata, [Primary Care Provider] - 2 Days Disposition Disposition: Home, Self Care
[2022-02-26 23:36] LABS: Bacteria 0 SEEN /hpf (None Seen); Mucous, Urine 0 SEEN /hpf (<or=2+); Squamous Epithelial Cells - UA 0 SEEN /hpf (0-5); White Blood Cells 0 SEEN /hpf (0-5)
[2022-02-26 23:40] LABS: Absolute Lymphocyte Count 1.75 X10^3/uL (0.83-4.51); Absolute Neutrophil Count 7.7 X10^3/uL (2.0-7.7); Basophil# 0.02 X10^3/uL; Basophil% 0.2 % (0-1); Eosinophil# 0.07 X10^3/uL; Eosinophils% 0.7 % (0-5); Hematocrit 38.5 % (40-54); Hemoglobin 12.4 g/dL (13.0-16.5); Lymphocyte # 1.75 X10^3/ul (0.83-4.51); Lymphocyte % 16.8 % (19-41); Mean Corp Hgb Conc 32.2 g/dL (32-36); Mean Corpuscular Hgb 26.6 pg (27.0-32.0); Mean Corpuscular Volume 82.6 fL (80-94); Mean Platelet Vol. 8.8 fl (6.2-12.0); Monocyte# 0.81 X10^3/uL; Monocyte% 7.8 % (0-10); NRBC Flagged by Analyzer 0 % (0-5); Neutrophil # 7.71 X10^3/uL (2.7-7.7); Neutrophil % 74.2 % (47-70); Platelet Count 374 K/mm3 (150-450); RBC Distribution Width CV 13.9 % (11.6-14.6); RBC Distribution Width SD 41.5 fl (35.1-43.9); Red Blood Count 4.66 M/mm3 (4.6-6.2); White Blood Count 10.4 K/mm3 (4.4-11.0)
[2022-02-26 23:46] LABS: Color, Urine Yellow (Yellow); Glucose, Dipstick Normal (Normal); Ketone-Dipstick Negative (Negative); Leukocyte Esterase-Dipstick Negative /ul (Negative); Nitrite-Dipstick Negative (Negative); Occult Blood-Urine 25 /ul (Negative); Protein-Dipstick 15 mg/dl (Negative); Urine Bilirubin Dipstick Negative (Negative); Urine Clarity Clear (Clear); Urine Urobilinogen Normal (Normal)
[2022-02-26 23:56] LABS: ALB/GLOB Ratio 0.8 RATIO (0.9-2.4); AST(SGOT) 17 U/L (15-37); Alanine Aminotransfer ALT/SGPT 30 U/L (16-61); Albumin, Serum 3.4 g/dL (3.2-5.0); Alkaline Phosphatase 130 U/L (45-117); Anion Gap 4 (5-15); BUN 11 mg/dL (7-18); BUN/Creat Ratio 13.3 RATIO (10-20); Calcium,Total 9.5 mg/dL (8.5-10.1); Chloride 105 mmol/L (98-107); Creatinine, Serum 0.83 mg/dL (0.70-1.30); EST Glomerular Filtration Rate 104 mL/min (>60); Est Glom Filt Rate - Afr Amer 126 mL/min (>60); Estimated Creatinine Clearance 95.02 ml/min; Globulin 4.5 g/dL (2.2-4.2); Glucose 104 mg/dL (74-106); Potassium 3.9 mmol/L (3.5-5.1); Protein, Total 7.9 g/dL (6.4-8.2); Sodium Level 137 mmol/L (136-145)
[2022-02-27 00:07] LABS: Red Blood Cells-Urine 0-5 SEEN /hpf (0-5)
[2022-02-27 01:00] VITALS: BP 155/71; PULSE 89; RESP 15; O2SAT 99
[2022-02-27] MEDS: Magnesium Citrate 300 ML PO (02:46)
== END 2022-02-27 02:50 | disposition home or self-care (01) ==
PROVIDERS: Emergency Provider Emergency Medicine; PCP Student in an Organized Health Care Education/Training Program; Visit Provider Emergency Medicine
DX: K59.00 Constipation, unspecified (principal); R39.15 Urgency of urination; R33.9 Retention of urine, unspecified; F17.200 Nicotine dependence, unspecified, uncomplicated; Z90.49 Acquired absence of other specified parts of digestive tract
CPT/HCPCS: 51702; 74022; 80053; 81001; 85025; 99285; A4216

== ENCOUNTER 2022-03-01 12:45 | Emergency (ER) | payer OTHER, SELFPAY ==
[2022-03-01 12:46] VITALS: BP 133/84; PULSE 90; RESP 18; TEMP 36.6; O2SAT 98; BMI 31.4
--- NOTE | 2022-03-01 13:18 | EDS_ITS ---
HPI History of Present Illness Chief Complaint: Bell C/O Narrative Narrative: Patient presents wanting his Bell catheter removed. He states that he was seen in the emergency department 2 to 3 days ago with urinary retention after cholecystectomy. He had been constipated at that time. He is no longer having problems with constipation and bowel movement. He states when he had the Bell catheter placed on Monday/Monday morning, that he had over 800 cc of urine as post void residual. He states that the Bell catheter is uncomfortable, and that he was not told to follow-up with urology. He states he was told to follow-up with his primary care physician, who refused to remove the Bell catheter because he states they do not take my insurance and furthermore he states that he usually sees the [facility] but that is in [place]. 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 [facility] Medical History Diverticular disease of colon DVT (deep venous thrombosis) Inguinal hernia Open fracture Vitamin D deficiency Home Medications ondansetron 4 mg disintegrating tablet 4 mg PO Q8H PRN nausea and vomiting #10 tabs 02/01/22 [Rx Last Taken Unknown] Vitamin D (with calcium) 3 tab PO/SL DAILY 02/04/22 [History Last Taken Unknown] omeprazole 20 mg capsule,delayed release 20 mg PO DAILY 02/04/22 [History Last Taken Unknown] acetaminophen 325 mg tablet (Tylenol) 650 mg PO Q4H PRN PRN Pain Or Fever #0 tabs 02/05/22 [Rx Last Taken Unknown] polyethylene glycol 3350 17 gram/dose oral powder (Miralax) 17 g PO DAILY #119 grams 02/27/22 [Rx Last Taken Unknown] sodium phosphates 19 gram-7 gram/118 mL enema (Fleet Enema) 118 ml MO DAILY PRN constipation #532 mL 02/27/22 [Rx Last Taken Unknown] Allergy/AdvReac Type Severity Reaction Status Date / Time venom-honey bee Allergy Anaphylaxis Verified 03/01/22 12:46 [bee venom (honey bee)] INHALED STEROIDS AdvReac Other Uncoded 03/01/22 12:46 Surgical History History of cholecystectomy History of herniorrhaphy Hx of spinal fusion Social History Smoking Status: Current some day smoker tobacco type: cigars substance use type: does not use ROS ROS ED ROS Narrative Constitutional: No fever, no chills. HEENT: No sore throat. No neck pain. No loss of vision. No rhinorrhea. Cardiovascular: No chest pain. No palpitations. No pedal edema. Respiratory: No cough, no shortness of breath. Abdominal: No abdominal pain. No nausea. No vomiting. Genitourinary: No dysuria. No hematuria. History of urinary retention 2 to 3 days ago. Bell catheter in place. States Bell catheter is uncomfortable. Musculoskeletal: No myalgias. No arthralgias. Neurologic: No headaches. No dizziness. No lightheadedness. Skin: No rash. No change in color. Psychiatric: No depression. No anxiety. EXAM Physical Exam Narrative Exam Narrative: Afebrile. Vital signs noted. HEENT: Normocephalic. Atraumatic. PERRL, EOMI. Neck soft and supple. No point tenderness or step off. Cardiovascular: Regular rate and rhythm. No murmurs, rubs, or gallops appreciated. Respiratory: No tachypnea. Lungs clear to auscultation bilaterally. Gastrointestinal: Abdomen soft, nontender, with normoactive bowel sounds. No rebound or guarding. Genitourinary: Noted Bell leg bag with yellow urine contained within, right leg. Neurological: Awake. Alert. Nonfocal, nonlateralizing. Skin: No rash. Normal color. No pallor. Musculoskeletal: No pedal edema. Full range of motion extremities. Const Vital Signs: 03/01/22 12:46 03/01/22 13:28 Temperature 98 F Temperature Source Temporal Pulse Rate 90 88 Respiratory Rate 18 15 Blood Pressure 133/84 H 142/80 H Blood Pressure Mean 100 Pulse Ox 98 98 Oxygen Delivery Method Room Air MDM MDM MDM Narrative Medical decision making narrative: I had a lengthy discussion with the patient. He was told that should the catheter be removed today, that there is a good chance that he may experience urinary retention and would have to have a catheter replaced. He has decided to leave the catheter in place and follow-up with urology. I gave him the number to Dr. Mendoza's office. He then stated that he is a [facility] patient, but does not want to travel all the way to [place] although a ride may be provided for him. Additionally, he requested a note to be off work for 4 days because he states he is unable to work because of the discomfort of the catheter. I told him that I was unable to write him to be off work for that period of time. He will follow-up with urology whether it be at the [facility] or not for catheter removal. I did have the patient advocate, Christopher Anthony speak with him and direct him towards proper follow-up. Disposition is discharged home in stable, condition. Discharge Plan Triage Chief Complaint: Bell C/O ED Provider: Luis Altamirano Dx/Rx/DC Orders Clinical Impression: History of urinary retention, Bell catheter in place Instructions: ED Bell Catheter, Care Prescriptions: No Action ondansetron 4 mg tablet,disintegrating 4 mg PO Q8H PRN (Reason: nausea and vomiting) Qty: 10 0RF omeprazole 20 mg Capsule,Delayed Release(Dr/Ec) 20 mg PO DAILY Vitamin D (with calcium) 3 tab PO/SL DAILY acetaminophen [Tylenol] 325 mg Tablet 650 mg PO Q4H PRN PRN (Reason: Pain Or Fever) Qty: 0 0RF polyethylene glycol 3350 [Miralax] 17 gram/dose powder 17 g PO DAILY Qty: 119 0RF Fleet Enema 19-7 gram/118 mL enema 118 ml MO DAILY PRN (Reason: constipation) Qty: 532 0RF Primary Care Provider: [facility] Referrals: Andrew Zapata DO [NON-STAFF] - Joe Mendoza MD [STAFF PHYSICIAN] - 5-7 Days Disposition Disposition: Home, Self Care Discharge Date/Time: 03/01/22 13:30
[2022-03-01 13:28] VITALS: BP 142/80; PULSE 88; RESP 15; O2SAT 98
== END 2022-03-01 13:30 | disposition home or self-care (01) ==
LOC: ED 13:09
PROVIDERS: Emergency Provider Emergency Medicine; Visit Provider Emergency Medicine
DX: Z46.6 Encounter for fitting and adjustment of urinary device (principal); E55.9 Vitamin D deficiency, unspecified; F17.290 Nicotine dependence, other tobacco product, uncomplicated; Z79.899 Other long term (current) drug therapy; Z90.49 Acquired absence of other specified parts of digestive tract
CPT/HCPCS: 99282

== ENCOUNTER 2024-01-07 20:10 | Emergency (ER) | payer OTHER, SELFPAY ==
[2024-01-07 20:10] VITALS: BP 159/84; PULSE 90; RESP 16; TEMP 36.6; O2SAT 99; BMI 33.7
[2024-01-07 21:46] VITALS: BP 149/89; PULSE 92; RESP 16; TEMP 36.6; O2SAT 99
--- NOTE | 2024-01-07 22:11 | ED.VIS.LOWEX ---
HPI History of Present Illness Chief Complaint: Lower Extremity Injury Narrative Narrative: 53-year-old male with pain to the right calf and right hamstring. He does not really know what he did to it. Denies any trauma that he knows of. He has been walking with a limp. Patient has a history of right knee replacement. Patient states he also had a traumatic injury to his leg which caused a provoked blood clot. He is on blood thinners and but has not had a repeat DVT. Patient states he does not have any chest pain or shortness of breath. Patient concerned he may have developed a blood clot. [facility] Medical History DVT (deep venous thrombosis) Inguinal hernia Open fracture Vitamin D deficiency Diverticular disease of colon Peritonsilar infection Home Medications ?Medication ?Instructions ?Recorded ?Last Taken ?Type omeprazole 20 mg capsule,delayed 20 mg PO DAILY 02/04/22 Unknown History release amlodipine 10 mg tablet 10 mg PO DAILY 01/07/24 Unknown History loratadine 10 mg tablet 10 mg PO DAILY 01/07/24 Unknown History (Allerclear) Allergy/AdvReac Type Severity Reaction Status Date / Time Corticosteroids Allergy Intermediate NEEDS Verified 01/07/24 20:12 (Glucocorticoids) FOLLOW-UP venom-honey bee (bee venom Allergy Anaphylaxis Verified 01/07/24 20:12 (honey bee)) Surgical History History of knee replacement History of herniorrhaphy History of cholecystectomy Hx of spinal fusion Social History Smoking Status: Current some day smoker tobacco type: cigars substance use type: does not use ROS ROS ED Constitutional Constitutional ED: Denies chills, fever(s) or sweats Eyes Eyes: Denies blurry vision or change in vision ENT ENT ED: Denies ear pain or sore throat Cardiovascular Cardiovascular: Denies chest pain, palpitations or racing heartbeat Respiratory/Chest Respiratory/Chest: Denies cough, dyspnea or sputum Gastrointestinal Gastrointestinal: Denies abdominal pain, constipation, diarrhea, nausea or vomiting Genitourinary Genitourinary ED: Denies dysuria, hematuria or urinary frequency Musculoskeletal Musculoskeletal: Reports other Details: Right leg pain ; Denies arthralgias, myalgias or neck pain Integumentary Denies abscess, Abrasions or rash Neurologic Neurologic: Denies headache(s), paresthesias or weakness Psychiatric Psychiatric: Denies anxiety, depression, suicidal ideation or suicidal thoughts Endocrine Endocrinology: Denies polydipsia or polyuria EXAM Physical Exam Const Vital Signs: 01/07/24 20:10 01/07/24 21:46 Temperature 97.8 F 97.9 F Temperature Source Temporal Pulse Rate 90 92 Respiratory Rate 16 16 Blood Pressure 159/84 H 149/89 H Blood Pressure Mean 109 109 Pulse Ox 99 99 Oxygen Delivery Method Room Air Positive well nourished General Appearance ED: NAD HEENT Reports moist mucous membranes normocephalic and atraumatic Resp normal respiratory effort Cardio regular rate and regular rhythm Extremity Extremity Narrative: there is tenderness to palpation over the right calf and the right hamstring posteriorly. I do not feel any tenderness along the right tibia or fibular region. There is no patellar tenderness. Full range of motion of the right knee. Right knee extensor mechanism intact. No noted bruising or edema. Compartments are soft. Neuro oriented x3 Sensorium / Orientation: alert Motor Exam: strength 5/5 throughout Psych mental status grossly normal MDM MDM MDM Narrative Medical decision making narrative: Patient presenting with right leg pain. Does not know if he injured it or if he has a DVT. I do not have ultrasound due to it being Monday evening at 10:00. I offered him Lovenox shot until I can get an ultrasound tomorrow and he declines. He states he will make the ultrasound tomorrow. He does not want anything for pain because he does not like pain medicine. Return precautions discussed. Impression: 1. Right leg pain Discharge Plan Triage Chief Complaint: Lower Extremity Injury ED Provider: Richy Eric Dx/Rx/DC Orders Instructions: ED Leg Spasm Prescriptions: No Action omeprazole 20 mg Capsule,Delayed Release(Dr/Ec) 20 mg PO DAILY amlodipine 10 mg tablet 10 mg PO DAILY loratadine [Allerclear] 10 mg tablet 10 mg PO DAILY Stand Alone Forms: ED Work / School Excuse Other Ambulatory Orders: Venous Duplex US, Unilateral (Stat) Facility: [facility] - Location: [facility] Ordered By: Dr. Richy Eric [facility] [Primary Care Provider] - Print Language: Tristanian Disposition Disposition: Home, Self Care
== END 2024-01-07 22:20 | disposition home or self-care (01) ==
PROVIDERS: Emergency Provider Student in an Organized Health Care Education/Training Program; Visit Provider Student in an Organized Health Care Education/Training Program
DX: M79.604 Pain in right leg (principal); F17.290 Nicotine dependence, other tobacco product, uncomplicated; Z79.899 Other long term (current) drug therapy; Z96.651 Presence of right artificial knee joint; Z86.718 Personal history of other venous thrombosis and embolism
CPT/HCPCS: 99283; A4216

== ENCOUNTER → 2024-01-08 | Outpatient (CLI) | payer BC, SELFPAY ==
--- NOTE | 2024-01-08 14:08 | VDLE_ITS ---
Reason For Study: Pain RLE RIGHT LEFT GSV is normal. CFV is compressible, spontaneous, phasic, CFV is compressible, spontaneous, phasic, competent, and demonstrates normal competent and demonstrates normal augmentation. augmentation. FV is compressible, spontaneous, phasic, competent and demonstrates normal augmentation. POP V is compressible, spontaneous, phasic, competent and demonstrates normal augmentation. T/P Trunk is compressible. PTV is compressible. RT PerV is compressible. Procedure This is a venous duplex using B-mode, color flow and spectral Doppler. Exam performed in department. VL/Venous Duplex US, Unilateral Interpretation Summary There is no evidence of right lower extremity deep vein thrombosis. Right great saphenous vein appears patent and compressible segmentally. Normal flow patterns left common f emoral vein Ordering Physician: Richy Eric Referring Physician: [facility] Performed By: Wilma Hinds, [place], RVT
== END | disposition home or self-care (01) ==
LOC: CVS 14:07
PROVIDERS: Referring Provider Student in an Organized Health Care Education/Training Program; Visit Provider Student in an Organized Health Care Education/Training Program
DX: M79.604 Pain in right leg (principal)
CPT/HCPCS: 93971